=== PATIENT | female | born 1935 | race Caucasian/White ===

== ENCOUNTER → 2016-10-07 | Outpatient (CLI) | payer OTHER ==
[~2016-10-07] MED LIST: ADVAIR HFA115 MCG/21 INH; ALBUTEROL2.5 MG/0.5 INH; AMBEREN PO; AMOXICILLIN 50500 M1 PO; ASPIRIN EC81 M1 PO; ATORVASTATIN CA20 MG PO; BUTRANS1 EAC1 TD; CALCIUM 600 +1 EAC1 PO; CALCIUM 600 +1 EAC5 PO; CALCIUM OYSTER500 MG PO; CARVEDILOL3.125 MG PO; CEFTIN500 MG PO; CIPRODEX OTIC7.5 ML GTT; CO Q-10150 MG PO; CO Q-10200 MG PO; COREG PO; COREG3.125 MG PO; CVS FISH OIL 11 EAC3 PO; DEMADEX20 MG PO; DEXILANT60 MG PO; DILAUDID2 M1 PO; DOCUSATE SODIU100 MG PO; ESTER-C 500 MG1 EAC1 PO; EVENING PRIMRO500 MG PO; FERREX-150 PLU150 MG PO; FISH OIL 1,001000 M2 PO; FISHOIL PO; GALZIN25 MG PO; GARLIC OIL1 EAC1 PO; GINKGO BILOBA120 MG PO; GLUCOSAMINE &1 EACH PO; GLUCOSAMINE HC500 MG PO; HYDROCODON-ACE1 EAC8 OR; HYDROCODON-ACE1 EAC8 PO; K-DUR10 ME1 PO; KLOR-CON 1010 MEQ PO; LASIX 40 MG TAB40 M1 OR; LEVOXYL PO; LIPITOR80 MG PO; LISINOPRIL5 MG PO; MIRALAX17 GM PO; MOM PO; MUCINEX600 MG OR; MULTIVITAMINS PO; NYAMYC15 GM TOP; OMEGA-3100 MG PO; OMEGA-31000 M1 PO; OMEGA-31000 MG PO; OMEPRAZOLE20 MG PO; OXYCONTIN10 M1 PO; PANTOPRAZOLE SO40 M1 PO; PEPCID40 MG PO; PERCOCET 5-3251 EACH PO; PREDNISONE 20 M20 MG PO; PRILOSEC 20 MG20 MG OR; PRILOSEC 20 MG20 MG PO; QUINAPRIL 20 MG20 MG PO; QVAR HFA 440 MCG/UN1 IH; SENOKOT-S1 TA1 OR; SENOKOT-S1 TA1 PO; SYMBICORT160 MCG/4. INH; SYNTHROID100 MCG PO; SYNTHROID125 MCG PO; TYLENOL325 MG PO; VERAMYST10 GM NS; VITAMIN B-125000 MCG PO; VITAMIN B-125000 MCG SL; VITAMIN D 5050000 I1; VITAMIN D-32000 UNIT PO; VITAMIN D32000 UNI1 PO; VITAMINC500 PO; VITCB500GO PO; ZETIA10 MG PO; ZINC CHELATE100 MG PO; ZINC CHELATE50 MG PO; ZPAK PO
== END ==
LOC: RAD 16:24
DX: J90 Pleural effusion, not elsewhere classified (principal); J98.11 Atelectasis; M19.011 Primary osteoarthritis, right shoulder; M85.80 Other specified disorders of bone density and structure, unspecified site

== ENCOUNTER → 2016-10-30 | Outpatient (CLI) | payer OTHER | LOC: RAD 13:14 | DX: R91.8 Other nonspecific abnormal finding of lung field (principal); R06.02 Shortness of breath ==

== ENCOUNTER → 2017-06-23 | Outpatient (CLI) | payer OTHER | LOC: CAT 06-17 09:35 | DX: R91.1 Solitary pulmonary nodule (principal); J98.11 Atelectasis; R91.8 Other nonspecific abnormal finding of lung field; I51.7 Cardiomegaly; J44.9 Chronic obstructive pulmonary disease, unspecified; I49.5 Sick sinus syndrome; I50.23 Acute on chronic systolic (congestive) heart failure; I25.5 Ischemic cardiomyopathy; I25.10 Atherosclerotic heart disease of native coronary artery without angina pectoris; G47.33 Obstructive sleep apnea (adult) (pediatric); E66.01 Morbid (severe) obesity due to excess calories; I44.7 Left bundle-branch block, unspecified; N18.9 Chronic kidney disease, unspecified; E03.9 Hypothyroidism, unspecified; Z95.0 Presence of cardiac pacemaker ==

== ENCOUNTER → 2017-08-13 | Outpatient (CLI) | payer OTHER | LOC: RAD 15:28 | DX: J44.9 Chronic obstructive pulmonary disease, unspecified (principal); K21.9 Gastro-esophageal reflux disease without esophagitis; I50.9 Heart failure, unspecified; I25.5 Ischemic cardiomyopathy; I25.10 Atherosclerotic heart disease of native coronary artery without angina pectoris; G47.33 Obstructive sleep apnea (adult) (pediatric); E66.01 Morbid (severe) obesity due to excess calories; E03.9 Hypothyroidism, unspecified; N18.9 Chronic kidney disease, unspecified ==

== ENCOUNTER → 2017-11-26 | Outpatient (CLI) | payer OTHER | LOC: RAD 16:20 | DX: J90 Pleural effusion, not elsewhere classified (principal); J98.6 Disorders of diaphragm; Z95.0 Presence of cardiac pacemaker ==

== ENCOUNTER → 2017-11-27 | Outpatient (CLI) | payer OTHER | LOC: RAD 13:24 | DX: J90 Pleural effusion, not elsewhere classified (principal); J98.11 Atelectasis; J98.6 Disorders of diaphragm ==

== ENCOUNTER → 2017-12-01 | Outpatient (CLI) | payer OTHER ==
--- NOTE | ~2017-12-01 | PATH ---
[facility] [address] [address] PATHOLOGY RPT PROCEDURE Name: TRACEY HARO Room #: REG [facility].#: [id number] Admission: 12/01/17 Date of : 37 Discharge: Report #: [id number] Path Case #: [id number] Note [facility] Accession Number: [id number] TESTS RESULT FLAG UNITS REF RANGE LAB Clinician Provided Cytology Information No. of containers..01 Other (Miscellaneous) Source: RT PLEURAL FLUID DIAGNOSIS: RT PLEURAL FLUID NEGATIVE FOR MALIGNANT CELLS. SCANT CELLULARITY. MESOTHELIAL CELLS ARE PRESENT. Signed out by: Kerrie Callejas MD, Pathologist NPI- [id number] Performed by: Juanito Gotti, Manufactured Buildings Supervisor ([facility]) Gross description: 01 17ML, YELLOWISH RED, CLOUDY /LCS FLAG LEGEND: L-Low Normal,H-High Normal,LL-Alert Low,HH-Alert High <-Panic Low,>-Panic High,A-Abnormal,AA-Critical Abnormal Performed at: [address] [place] [address] Sina Michael MD, [address] [address] Kerrie Callejas MD, Performed at: [address], [place], [place] [address] MD Sina Michael MD Phone: [phone]
[2017-12-01 10:28] LABS: HEMATOCRIT 37.3 % (37.0-47.0); HEMOGLOBIN 12.2 gm/dL (12.0-15.0); MCH 29.9 pg (26.0-34.0); MCHC 32.7 g/dL (28.0-37.0); MCV 91.6 fL (80.0-100.0); RBC 4.08 mil/uL (4.20-5.00); RDW 14.7 % (10.5-14.5)
[2017-12-01 10:36] LABS: APTT 29.2 Seconds (24.5-32.8); CALCIUM 8.9 mg/dL (8.5-10.1); CREATININE 1.2 mg/dL (0.6-1.0); INR 1.2; POTASSIUM 3.3 mmol/L (3.5-5.1); PROTIME 11.9 Seconds (9.3-11.4)
[2017-12-01 12:12] LABS: CLARITY CLOUDY; COLOR DARK YELLOW; SOURCE RIGHT CHEST; TOTAL VOLUME 48 mL
[2017-12-01 12:17] LABS: SOURCE RIGHT CHEST
[2017-12-01 12:44] LABS: BF NUCLEATED CELLS 287; BF RBC 4926
[2017-12-01 14:05] LABS: BF MACROPHAGE 19; BF NEUTROPHILS 32
[2017-12-02 13:12] LABS: BODY FLUID ALBUMIN 2.4 g/dL (()); BODY FLUID AMYLASE 36 U/L (()); BODY FLUID GLUCOSE 102 mg/dL (()); BODY FLUID LDH 72 IU/L (())
== END | disposition home or self-care (01) ==
LOC: LAB 06:15
PROVIDERS: Internal Medicine Pulmonary Disease
DX: J90 Pleural effusion, not elsewhere classified (principal); J44.9 Chronic obstructive pulmonary disease, unspecified; I50.9 Heart failure, unspecified; Z88.8 Allergy status to other drugs, medicaments and biological substances; Z79.899 Other long term (current) drug therapy; Z98.890 Other specified postprocedural states

== ENCOUNTER → 2017-12-22 | Outpatient (CLI) | payer OTHER | LOC: RAD 13:37 | DX: J90 Pleural effusion, not elsewhere classified (principal) ==

== ENCOUNTER → 2018-01-05 | Outpatient (CLI) | payer OTHER | LOC: CAT 10:10 | DX: J90 Pleural effusion, not elsewhere classified (principal); J98.11 Atelectasis; I25.10 Atherosclerotic heart disease of native coronary artery without angina pectoris; N18.9 Chronic kidney disease, unspecified; E66.01 Morbid (severe) obesity due to excess calories; J44.9 Chronic obstructive pulmonary disease, unspecified; I50.9 Heart failure, unspecified; Z88.5 Allergy status to narcotic agent ==

== ENCOUNTER → 2018-04-07 | Outpatient (CLI) | payer OTHER | LOC: CAT 13:02 | DX: J90 Pleural effusion, not elsewhere classified (principal); J98.11 Atelectasis; J18.9 Pneumonia, unspecified organism; I51.7 Cardiomegaly; I25.10 Atherosclerotic heart disease of native coronary artery without angina pectoris; N20.0 Calculus of kidney; M47.814 Spondylosis without myelopathy or radiculopathy, thoracic region; R91.1 Solitary pulmonary nodule ==

== ENCOUNTER → 2018-08-19 | Outpatient (CLI) | payer OTHER | LOC: RAD 09:20 | DX: I51.7 Cardiomegaly (principal); J90 Pleural effusion, not elsewhere classified; J98.11 Atelectasis; J44.9 Chronic obstructive pulmonary disease, unspecified; I50.9 Heart failure, unspecified ==

== ENCOUNTER 2018-09-20 20:35 | Inpatient (IN) | payer OTHER ==
[~2018-09-20] VITALS: Ht 157.5 cm; Wt 96.5 kg
[2018-09-20 20:35] VITALS: BP 104/58
[~2018-09-20 20:35] MED LIST changes: +CO Q-10100 MG PO; -CO Q-10150 MG PO; -GALZIN25 MG PO; +OXYCODONE HCL10 MG PO; -OXYCONTIN10 M1 PO; -SENOKOT-S1 TA1 PO; +SENOKOT8.6 MG PO; -SYNTHROID125 MCG PO; +SYNTHROID200 MCG PO; +ZINC50 MG PO
[2018-09-20 21:14] LABS: ABSOLUTE NEUTROPHILS 6.4 thou/uL (1.4-8.2); BASOPHILS 0.3 % (0.0-2.0); EOSINOPHILS 0.4 % (0.0-3.0); HEMATOCRIT 35.1 % (37.0-47.0); HEMOGLOBIN 11.6 gm/dL (12.0-15.0); LYMPHOCYTES 9.3 % (24.0-44.0); MCH 30.7 pg (26.0-34.0); MCV 93.1 fL (80.0-100.0); MONOCYTES 8.1 % (1.0-8.0); PLATELET COUNT 207 thou/uL (150-400); POLYS 81.9 % (36.0-66.0); RBC 3.77 mil/uL (4.20-5.00); RDW 14.2 % (10.5-14.5); WBC 7.8 thou/uL (4.0-11.0)
--- NOTE | 2018-09-20 21:19 | EKG ---
[place] [address] [facility] [place] [address] ELECTROCARDIOGRAM REPORT Name: TRACEY SEGOVIA [id number] ������������������ Admission: 09/20/18 ������������������ Attend Phys: Discharge: ������������������ Date of : 37 Report #: [id number] ����������������������������������������������������������������� [id number] THIS REPORT FOR: //name// [facility] ED Test Date: 2018-09-20 Test Time: 21:07:21 Pat Name: TRACEY HARO Department: Room: Gender: F Elevator Conductor: MARICHUY : 1935 Requested By: Erica Giordano Order Number: [id number] MD: Homero Diego Measurements Intervals Beggs Rate: 83 P: OK: QRS: -50 QRSD: 179 T: 133 QT: 481 QTc: 566 Interpretive Statements Afib/flut and V-paced complexes No further rhythm analysis attempted due to paced rhythm Left bundle branch block Compared to ECG 10/13/2015 07:17:12 Left bundle-branch block now present AV dual-paced complex(es) or rhythm no longer present Electronically Signed On 09-20-2018 21:18:56 CDT by Homero Diego [email or web address] ��������������������������������������������� <ELECTRONICALLY SIGNED> ���������������������������������������� By: Homero Diego MD ��������������������������������������������� 09/20/182117 06 06 Homero Diego MD /EPI
[2018-09-20 21:23] LABS: CALCIUM 10.2 mg/dL (8.5-10.1); CREATININE 1.9 mg/dL (0.6-1.0); POTASSIUM 3.5 mmol/L (3.5-5.1)
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
[2018-09-20 21:32] LABS: ALBUMIN 3.9 g/dL (3.4-5.0); TOTAL BILIRUBIN 0.5 mg/dL (<0.1-1.0); TROPONIN-I 0.14 ng/mL (<0.06)
[2018-09-20 22:07] LABS: URINE BILIRUBIN NEGATIVE (Negative); URINE BLOOD TRACE (Negative); URINE CLARITY CLEAR; URINE COLOR YELLOW; URINE GLUCOSE-RANDOM* NEGATIVE (Negative); URINE KETONES NEGATIVE (Negative); URINE LEUKOCYTES-REFLEX NEGATIVE (Negative); URINE NITRITE-REFLEX NEGATIVE (Negative); URINE PROTEIN (DIPSTICK) NEGATIVE (Negative); URINE UROBILINOGEN 0.2 E.U./dl (0.2-1.0)
[2018-09-20 22:14] VITALS: BP 104/58
[2018-09-20 23:28] VITALS: BP 107/71
[2018-09-21 00:01] VITALS: BP 0/0
--- NOTE | 2018-09-21 00:01 | NUR ---
HAROLDO PUCKETT [facility] [phone]
--- NOTE | 2018-09-21 01:00 | NUR ---
SPOKE WITH VÍCTOR AND TRIED TO PULL UP VITALS BUT THE SYSTEM HAD CLEARED OUT THE HISTORY FOR THIS PATIENT. VITALS RELAYED TO DR GAONA THROUGH STAY BUT NOT INPUT AT THE TIME.
[2018-09-21] MEDS ORDERED: ULORIC40 MG PO (02:10)
[2018-09-21] MEDS ORDERED: PRADAXA150 MG PO (02:14)
--- NOTE | 2018-09-21 04:34 | NUR ---
PT ADMITTED FROM ER FOR SOA AND WEAKNESS AND ELEVATED TROPONIN. AO X4. IN COMPANY OF . VITAL SIGNS STABLE. HEPARIN DRIP STARTED PER DR. WILBURN ORDER THROUGH ER DOCTOR. HEPARIN PROTOCOL IMPLEMENTED. PT UNCOMFORTABLE ANSWERING SOME QUESTIONS IN PRESENCE OF . TO MAKE A FOLLOW UP AND INTERVIEW PATIENT WHEN KOBE. WILL CONTINUE TO FOLLOW POC.
[2018-09-21 05:47] LABS: CHOLESTEROL 75 mg/dL (<200); HDL CHOLESTEROL 32 mg/dL (>40); LDL CHOLESTEROL 35 mg/dL (<100); SERUM ASSESSMENT Clear; TC:HDL 2.3 Ratio (Not establshd); TRIGLYCERIDE 43 mg/dL (<150); VLDL 9 mg/dL (<40)
[2018-09-21 05:50] VITALS: BP 97/58
--- NOTE | 2018-09-21 07:39 | EKG ---
[address] [place] [address] ELECTROCARDIOGRAM REPORT Name: TRACEY HARO Room #: 215-P ADM IN M.R.#: [id number] ������������������ Admission: 09/20/18 ������������������ Attend Phys: Rehana Lazaro MD Discharge: ������������������ Date of : 36 Report #: [id number] ����������������������������������������������������������������� [id number] THIS REPORT FOR: //name// [facility] ED Test Date: 2018-09-20 Test Time: 22:22:52 Pat Name: TRACEY HARO Department: Room: 215 Gender: F Belt Splicer: ANTONIO : 1935 Requested By: Erica Giordano Order Number: [id number] MD: Jevon Lorenzo Measurements Intervals [place] Rate: 135 P: 189 IA: 108 QRS: 241 QRSD: 136 T: 227 QT: 354 QTc: 531 Interpretive Statements Ventricular-paced complexes No further analysis attempted due to paced rhythm Compared to ECG 09/20/2018 21:07:21 no significant change was found Electronically Signed On 09-21-2018 7:39:18 CDT by Jevon Lorenzo [email or web address] ��������������������������������������������� <ELECTRONICALLY SIGNED> ���������������������������������������� By: Jevon Lorenzo MD, [facility] ��������������������������������������������� [id number] 21 21 Jevon Lorenzo MD, [facility] /EPI
[2018-09-21 08:35] VITALS: BP 96/51
[2018-09-21 09:05] LABS: CALCIUM 9.5 mg/dL (8.5-10.1); CREATININE 1.8 mg/dL (0.6-1.0); POTASSIUM 3.2 mmol/L (3.5-5.1)
[2018-09-21 09:14] LABS: TROPONIN-I 0.13 ng/mL (<0.06)
[2018-09-21 10:51] LABS: PROT/CREAT RATIO 0.2; URINE CREATININE-RANDOM* 82.2 mg/dL; URINE PROTEIN-RANDOM* 13.1 mg/dL (<11.9)
[2018-09-21 12:43] VITALS: BP 103/63
[2018-09-21 16:00] VITALS: BP 96/61
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
--- NOTE | 2018-09-21 16:23 | NUR ---
PT C/O CHRONIC BACK PAIN, DENIES PAIN MEDS. PT WEARS BIPAP MOST OF THE DAY EVEN WHILE AWAKE, STATES SHE LIKES TO FEEL THE AIR FLOW. HEPARIN GTT TITRATED ACCORDING TO PROTOCOL. NO CATH TODAY D/T CREATNINE LEVELS, NEPHROLOGY CONSULTED.
[2018-09-21 19:35] VITALS: BP 90/51
--- NOTE | 2018-09-22 04:42 | NUR ---
ASSUMED CARE AT 1900. PT AO X4. C/O LEFT KNEE PAIN, AND BACK PAIN. ON BIPAP . PT ON HEPARIN . 2229 APTT 68.4, NO CHANGE TO DRIP INDICATED. NOW ON DAILY APTT. HAD LARGE LOOSE BM YESTERDAY. EVENING BOWEL MEDS HELD. WILL CONTINUE TO FOLLOW POC.
[2018-09-22 05:00] VITALS: BP 100/69
[2018-09-22 07:04] LABS: ALBUMIN 3.5 g/dL (3.4-5.0); CALCIUM 10.2 mg/dL (8.5-10.1); CREATININE 1.8 mg/dL (0.6-1.0)
[2018-09-22 07:22] VITALS: BP 100/55
[2018-09-22 11:16] VITALS: BP 96/66
[2018-09-22 15:31] VITALS: BP 96/55
--- NOTE | 2018-09-22 19:34 | NUR ---
PATIENT HAS RESTED QUIETLY IN BED THIS AFTERNOON. NO COMPLAINTS. APTT 51.8 AT 1400. NO CHANGE IN HEPARIN RATE. DTR AT BEDSIDE. FALL PRECAUTIONS IN PLACE.
[2018-09-22 20:18] VITALS: BP 103/64
[2018-09-23] VITALS (14 sets, daily range): BP systolic 82–121; BP diastolic 48–67
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
[2018-09-23 05:03] LABS: ALBUMIN 3.2 g/dL (3.4-5.0); CALCIUM 9.6 mg/dL (8.5-10.1); CREATININE 1.8 mg/dL (0.6-1.0); PHOSPHORUS 4.1 mg/dL (2.5-4.9); POTASSIUM 4.5 mmol/L (3.5-5.1)
--- NOTE | 2018-09-23 13:44 | 2DMMODE ---
[facility] [address] [address] 2 D/M-MODE ECHOCARDIOGRAM Name: TRACEY HARO Room #: 215-P ADM IN M.R.#: [id number] ������������� Admission: 09/20/18 ������������� Attend Phys: Rehana Lazaro MD Discharge: ��� ������������� ��� Date of : 37 Date of Service: 09/23/18 1344 �� Report #: [id number] �������� ��������������������������������������������[id number] THIS REPORT FOR: //name// APPROVED REPORT Study performed: 09/23/2018 12:27:25 EXAM: Comprehensive 2D, Doppler, and color-flow Echocardiogram Patient Location: Bedside Room #: 215 Status: routine BSA: 1.91 HR: 84 bpm BP: 99/54 mmHg Rhythm: Atrial Fibrillation Other Information Study Quality: Adequate Indications CAD Hx: CABG, HTN, HLP, COPD. 2D Dimensions RVDd: 40.81 mm IVSd: 15.46 (7-11mm) LVOT Diam: 19.67 (18-24mm) LVDd: 46.39 mm PWd: 15.73 (7-11mm) Ascending Ao: 35.65 (22-36mm) LVDs: 37.43 (25-40mm) Aortic Root: 33.69 mm Volumes Left Atrial Volume (Systole) Single Plane 4CH: 98.28 mL Single Plane 2CH: 78.92 mL LA ESV Index: 50.00 mL/m2 Aortic Valve AoV Peak Santosh.: 1.31 m/s AO Peak Gr.: 6.91 mmHg LVOT Max P.94 mmHg LVOT Max V: 1.11 m/s HARISH Vmax: 2.57 cm2 Mitral Valve MV Decel. Time: 217.69 ms MV E Max Santosh.: 0.75 m/s [facility] [address] [id number] 2 D/M-MODE ECHOCARDIOGRAM Name: TRACEY HARO Room #: 215- ADM IN .R.#: [id number] ������������� Admission: 09/20/18 ������������� Attend Phys: Rehana Lazaro MD Discharge: ��� ������������� ��� Date of : 37 Date of Service: 09/23/18 1344 �� Report #: [id number] �������� ��������������������������������������������[id number] Pulmonary Valve PV Peak Santosh.: 1.01 m/s PV Peak Gr.: 4.12 mmHg Tricuspid Valve TR Peak Santosh.: 2.49 m/s RAP Estimate: 10.00 mmHg TR Peak Gr.: 24.82 mmHg PA Pressure: 35.00 mmHg Left Ventricle The left ventricle is normal size. Moderate concentric left ventricular hypertrophy. Left ventricular systolic function is moderately decreased. LVEF is 40%. This study is not technically sufficient to allow evaluation of the LV diastolic function due to atrial fibrillation. Right Ventricle Right ventricle is at the upper limits of normal. Right ventricle is hypokinetic. Atria Left atrium is severely dilated. Right atrium is moderately dilated. Aortic Valve Aortic valve is trileaflet; mildly thickened and calcified. No aortic regurgitation is present. There is no aortic valvular stenosis. Mitral Valve The mitral valve is normal in structure. Mild to moderate mitral regurgitation. Tricuspid Valve The tricuspid valve is normal in structure. Moderate tricuspid regurgitation. Estimated PAP is 35mmHg. Pulmonic Valve The pulmonary valve is normal in structure. Moderate pulmonic regurgitation. Great Vessels The aortic root is normal in size. The ascending aorta is normal in size. IVC is normal in size and collapses <50% with inspiration. [facility] [address] [id number] 2 D/M-MODE ECHOCARDIOGRAM Name: TRACEY HARO Room #: 215-P [facility] IN M.R.#: [id number] ������������� Admission: 09/20/18 ������������� Attend Phys: Rehana Lazaro MD Discharge: ��� ������������� ��� Date of : 37 Date of Service: 09/23/18 1344 �� Report #: [id number] �������� ��������������������������������������������[id number] Pericardium There is no pericardial effusion. Left and right pleural effusions noted. <Conclusion> The left ventricle is normal size. Moderate concentric left ventricular hypertrophy. Left ventricular systolic function is moderately decreased. LVEF is 40%. Right ventricle is hypokinetic. Left atrium is severely dilated. Right atrium is moderately dilated. Aortic valve is trileaflet; mildly thickened and calcified. Mild to moderate mitral regurgitation. Moderate tricuspid regurgitation. Estimated PAP is 35mmHg. Moderate pulmonic regurgitation. ��������������������������������������������� <ELECTRONICALLY SIGNED> ���������������������������������������� By: Iraj Porras MD ��������������������������������������������� 09/23/18 1344 43 43 Iraj Porras MD /INF
--- NOTE | 2018-09-23 16:22 | NUR ---
ASSESSMENT DOCUMENTED. VSS. VPACED ON THE MONITOR. NO PAIN REPORTED. PT STATES SHE DOES NOT FEEL SAFE RETURNING HOME WITH SPOUSE. CASE MANAGEMENT FOLLOWING. PT OFF UNIT FOR CATH.
[2018-09-23 18:09] LABS: GLOBULIN TOTAL 3.8 g/dL (2.2-3.9); M-SPIKE 0.4 g/dL (Not Observed)
[2018-09-23 19:20] LABS: INR 1.4; PROTIME 14.8 Seconds (9.3-11.4)
[2018-09-24] VITALS: BP 93/48
--- NOTE | 2018-09-24 01:20 | NUR ---
pt off br at 2044, assisted up to bsc, pt only able to pass gas, iv fluids infusing, right groin dressing cdi, prn pain med given for c/o knee and back, repositioned as needed, cpap at [facility], up again to bsc with small bm, vss with hr vpaced, irregular, daughter at bedside offering support, will con't to monitor per ppoc.
[2018-09-24 03:54] VITALS: BP 116/56
[2018-09-24 05:03] LABS: ALBUMIN 3.1 g/dL (3.4-5.0); CALCIUM 9.3 mg/dL (8.5-10.1); CREATININE 1.7 mg/dL (0.6-1.0); PHOSPHORUS 4.3 mg/dL (2.5-4.9); POTASSIUM 4.5 mmol/L (3.5-5.1)
[2018-09-24 05:14] LABS: HEMATOCRIT 29.6 % (37.0-47.0); HEMOGLOBIN 9.8 gm/dL (12.0-15.0); MCH 31.4 pg (26.0-34.0); MCHC 33.2 g/dL (28.0-37.0); MCV 94.6 fL (80.0-100.0); RBC 3.13 mil/uL (4.20-5.00); RDW 14.6 % (10.5-14.5)
[2018-09-24 08:00] VITALS: BP 95/60
--- NOTE | 2018-09-24 08:21 | CATHLAB ---
[facility] [place] [address] INVASIVE PROCEDURE REPORT Name: TRACEY HARO Room #: 215-P ADM IN .R.#: [id number] ������������� Admission: 09/20/18 ������������� Attend Phys: Rehana Lazaro MD Discharge: ��� ������������� ��� Date of : 37 Date of Service: 09/24/18 0821 �� Report #: [id number] �������� ��������������������������������������������[id number] THIS REPORT FOR: //name// APPROVED REPORT Study performed: 09/23/2018 15:25:03 Patient Details Patient Status: In-Patient Room #: The patient is a 82 year-old female Event Personnel Iraj Porras Resource Conservation Manager, Graeme Barrera RN RN, Aubree Acevedo RTR, Arik Salcido Valisa Monitor Procedures Performed Art Access - R femoral artery* Left Heart Cath Coronaries, Bypass Grafts [id number] LHCCORCABG 13446 Initial Mod Sed Same Phys/QHP Gr5y 969317 06123 Mod Sed Same Phys/QHP Ea 320358 Indication Non-STEMI , Dyspnea, Positive stress test, Chest pain Risk Factors Peripheral Vascular Disease, Hypercholesterolemia, Coronary Artery DiseaseHypertensionRenal Failure Previous Procedures/Diagnoses Previous CABG Procedure Narrative The Right Groin^ was infiltrated with 1% Lidocaine subcutaneous anesthesia. A PINNACLE 5FR Sheath #[id number] sheath was inserted into the RFA^. Coronary angiography was performed using coronary diagnostic catheters. The right coronary system was accessed and visualized with a jr4 catheter. The left coronary system was accessed and visualized with a jl4 catheter. Closure device was deployed with a Fr MYNXGRIP 5F #[id number]. There was no hematoma. Intraoperative Conscious Sedation Sedation start time: 1613 Case end Time: 1645 Fluoro Time: 5.40 minutes Dose: DAP 6972.00 cGycm2 Contrast Type and Amount: Visipaque 30 ml [facility] [place] [address] INVASIVE PROCEDURE REPORT Name: HAROTRACEY Room #: 215-P [facility] IN .R.#: [id number] ������������� Admission: 09/20/18 ������������� Attend Phys: Rehana Lazaro MD Discharge: ��� ������������� ��� Date of : 37 Date of Service: 09/24/18 0821 �� Report #: [id number] �������� ��������������������������������������������[id number] Coronary Angiography The patient's coronary anatomy is right dominant. [place] Artery Percent Stenosis Left Main: 10 % Prox LAD: % Mid/Distal LAD: 100 % Circumflex: 100 % RCA: 100 % Ramus: % Diagnostic Cath LAD There is a patent DAVIES graft with an end-to-side anastomosis to the mid LAD. After the anastomosis, there is both retrograde and antegrade flow in the lumbee LAD. Diagonal 1 This is a small-caliber vessel, with mild disease. Circumflex There is a patent sequential SVG with a dyha-fj-xkuj anastomosis to OM1, nrvp-qk-fpkz anastomosis to OM 2 and an end-to-side anastomosis to OM 3. Right Coronary The SVG to the PDA is a small-caliber vessel with severe diffuse disease and a subtotal obstruction at the distal anastomosis. The PDA is filled via collateral circulation from the obtuse marginal arteries. Left Ventriculography Left Ventriculography was not performed. Ejection Fraction was 40% based off patient's Echocardiogram. An LVEDP was measured and there is no gradient across the outflow tract. Hemodynamics The aortic pressure is 125/69 mmHg with a mean of 92 mmHg. The left ventricular pressure is 121/24 mmHg with a mean of mmHg. The left ventricular end diastolic pressure is 32 mmHg. Conclusion 1. Patent DAVIES graft to the LAD. 2. Patent sequential SVG to OM1, OM 2 and OM 3. 3. Occluded SVG to PDA. The PDA is filled via collateral circulation from the obtuse marginal arteries. 4. Recommend medical therapy. ��������������������������������������������� <ELECTRONICALLY SIGNED> ���������������������������������������� By: Iraj Porras MD ��������������������������������������������� 09/24/18820 0 0 Iraj Porras MD /INF
[2018-09-24 12:24] VITALS: BP 106/63
--- NOTE | 2018-09-24 13:38 | NUR ---
met with patient, spouse at bedside. Gave patient advantra post acute care list as patient may need post acute care prior to home.
[2018-09-24 14:15] LABS: SOURCE THORACENTESIS; TOTAL VOLUME 55 mL
[2018-09-24 14:16] LABS: CLARITY CLEAR; COLOR YELLOW
[2018-09-24] MEDS ORDERED: PREDNISONE 5 MG5 M1 PO (14:24)
[2018-09-24] MEDS ORDERED: SPIRIVA INH (14:24)
[2018-09-24] MEDS ORDERED: FLONASE 0.05%50 MCG NASAL (14:25)
[2018-09-24] MEDS ORDERED: ALPRAZOLAM 0.50.5 MG PO (14:25)
[2018-09-24 14:26] LABS: BF NUCLEATED CELLS 121; BF RBC 702
[2018-09-24] MEDS ORDERED: ASPIRIN81 M2 PO (14:26)
[2018-09-24 15:34] LABS: BF MACROPHAGE 44; BF NEUTROPHILS 11
[2018-09-24 16:00] VITALS: BP 99/64
--- NOTE | 2018-09-24 16:22 | NUR ---
FAXED REFERRAL TO [facility]ILL[facility] OF [facility] WITH ADM. THAT PT. MIGHT DC FRI/SAT. DCP TO FOLLOW.
[2018-09-24 19:25] VITALS: BP 107/56
--- NOTE | 2018-09-25 04:36 | NUR ---
ASSESSMENTS CHARTED. PATIENT UP TO BSC WITH ASSIST OF ONE. DAUGHTER AT BEDSIDE AT START OF SHIFT, AT BEDSIDE DURING NIGHT. PATIENT BREATHING EASIER SINCE THORACENTESIS OF RIGHT SIDE. PLAN OF CARE TO INCLUDE THORACENTESIS OF LEFT SIDE. BRIEFED AT START OF SHIFT OF STRAINED FAMILY DYNAMICS BETWEEN AND . 'S ANXIETY INCREASES WHEN IS AROUND. CONCERN ABOUT 'S CARE GIVING ABILITIES AT HOME. MENTION OF MEDS NOT BEING GIVEN TO OR TAKEN BY CORRECT PERSON.
[2018-09-25 04:49] VITALS: BP 89/54
[2018-09-25 05:28] LABS: CALCIUM 9.2 mg/dL (8.5-10.1); CREATININE 1.6 mg/dL (0.6-1.0); POTASSIUM 4.4 mmol/L (3.5-5.1)
[2018-09-25 05:37] LABS: CALCIUM 9.3 mg/dL (8.5-10.1); CREATININE 1.6 mg/dL (0.6-1.0); PHOSPHORUS 4.4 mg/dL (2.5-4.9); POTASSIUM 4.4 mmol/L (3.5-5.1)
[2018-09-25 08:40] LABS: SOURCE THORACENTESIS
[2018-09-25 08:50] VITALS: BP 92/60
[2018-09-25 12:32] VITALS: BP 90/62
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
[2018-09-25 14:32] VITALS: BP 90/62
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
[2018-09-25 15:57] LABS: CLARITY SLIGHTLY CLOUDY; COLOR YELLOW; SOURCE LEFT CHEST; TOTAL VOLUME 60 mL
[2018-09-25 15:59] LABS: SOURCE LEFT CHEST
[2018-09-25 16:09] LABS: BODY FLUID AMYLASE 27 U/L (()); BODY FLUID GLUCOSE 97 mg/dL (()); BODY FLUID LDH 72 IU/L (()); BODY FLUID PROTEIN 3.7 g/dL (())
[2018-09-25 16:17] LABS: BF NUCLEATED CELLS 389; BF RBC 274
[2018-09-25 16:57] VITALS: BP 146/98
[2018-09-25 17:05] LABS: BF MACROPHAGE 8; BF NEUTROPHILS 0
[2018-09-25 20:05] VITALS: BP 93/52
--- NOTE | 2018-09-26 01:41 | NUR ---
ASSESSMENT CHARTED. PATIENT HAS HAS SEVERAL BOWEL MOVEMENTS TODAY. PATIENT HAD SECOND THORACENTESIS WITH 720 MLS REMOVED. C/O LOW BACK PAIN. MED GIVEN WHEN AVAILABLE. PLAN OF CARE IS TO RETURN HOME TODAY WITH HOME HEALTH CARE.
[2018-09-26 03:01] VITALS: BP 92/58
[2018-09-26 07:45] VITALS: BP 100/62
[2018-09-26 11:15] VITALS: BP 99/63
[2018-09-26 15:55] VITALS: BP 102/67
--- NOTE | 2018-09-26 18:22 | NUR ---
ASSESSMENTS CHARTED - MEDS PER OCTOBER PT WITH CO'S OF PAIN - GIVEN OXY WITH LITTLE RELIEF ON BACK PAIN PT STATED THE MEDICATION JUST HELPED HER TO RELAX. EMILY DIET AND FLUIDS. NO CO'S OF NAUSEA. UP TO THE BEDSIDE COMMODE -SITTING ON SIDE OF BED. PT WANTING CPAP BACK ON THIS AM AFTER BREAKFAST - INFORMED PATIENT THAT SHE SHOULD NOT WEAR DURING THE DAY IT SHOULD BE USED AT NIGHT AND THAT SHE SHOULD USE O2 DURRING THE DAY - PT PLACED ON O2 AT 4 L NC WITH SAT IF 100% - TITRATED DOWN TO 2 L WITH SAT IN THE MID TO UPPER 90'S - PT WITH CONT PULSE OX INSITU. NO CO'S AT THE PRESENT TIME. HAS BEEN TO VISIT A FEW TIMES THIS SHIFT.
[2018-09-26 20:07] VITALS: BP 92/56
[2018-09-27] VITALS (7 sets, daily range): BP systolic 80–104; BP diastolic 44–66
--- NOTE | 2018-09-27 05:38 | NUR ---
ASSESSMENTS CHARTED. VPACED ON TELEMETRY. LUNGS DIMINISHED ON 2 LITERS NC OR CPAP. C/O PAIN 8/10 DOSED CHARTED. PATIENT DID A NOCTURNAL DESAT STUDY. PLAN OF CARE TO CONTINUE CARES.
[2018-09-27 05:55] LABS: ALBUMIN 2.9 g/dL (3.4-5.0); CALCIUM 8.5 mg/dL (8.5-10.1); CREATININE 1.4 mg/dL (0.6-1.0); POTASSIUM 4.2 mmol/L (3.5-5.1)
[2018-09-27 12:09] LABS: IgA 238 mg/dL (64-422); IgG 1090 mg/dL (700-1600); IgM 107 mg/dL (26-217)
[2018-09-27 13:10] LABS: BODY FLUID ALBUMIN 1.8 g/dL (()); BODY FLUID AMYLASE 15 U/L (()); BODY FLUID GLUCOSE 106 mg/dL (()); BODY FLUID LDH 63 IU/L (()); BODY FLUID PROTEIN 3.1 g/dL (())
--- NOTE | 2018-09-27 18:08 | NUR ---
VSS REMAINS BIV PACED, BP LOW TODAY 80/44 TO 82/40, PT HAQD 2 EPISODES OF FEELING LIGHTHEADED AND DIZZY WITH ABOVE BP S. MD AWARE. COREG DECREASED, COREG HELD BOTH TIMES TODAY BECAUSE OG ABOVE BPS AND SYNTOMS. PT UP TO BSC WITH ASSIST AND STEADY WITH ASSIST. WILL CONTINUE TO MONITER AND CARE FOR PTPER PLAN OF CARE
[2018-09-28 05:05] VITALS: BP 100/63
--- NOTE | 2018-09-28 06:03 | NUR ---
PATIENT AO X4 WITH ASYMPTOMATIC SOFT BP. PATIENT REPORTS DIFFICULT BREATHING WHEN LAYING FLAT OR SITTING UPRIGHT IN BED. O2 STATS LOW 90S WITHOUT O2. PT ON BIPAP WITH O2 AT 2L AFTER C/O SOA. WAS AT BEDSIDE TILL ABOUT 0200. REPORTS BACK PAIN AND R. KNEE PAIN. PRN OXY GIVEN. DENIES NAUSEA, OR VOMITING. LOWER LOB LUNGS COURSE. RECEIVING NEB TREATMENTS . NO FURTHER C/O VOICED AT THIS TIME. WILL CONTINUE TO FOLLOW PLAN OF CARE.
[2018-09-28 08:10] VITALS: BP 98/69
[2018-09-28 12:10] VITALS: BP 97/48
[2018-09-28] MEDS ORDERED: DIGOXIN125 MCG PO (12:27)
[2018-09-28] MEDS ORDERED: CARVEDILOL3.125 MG PO (12:27)
[2018-09-28 14:55] VITALS: BP 90/62
--- NOTE | 2018-09-28 15:18 | NUR ---
PT. DISCHARGING TODAY TO HOME WITH [facility]. NOTIFIED HERNAN AT [facility] OF DISCHARGE AND SHE WILL NOTIFY PT. TIME OF VISITS.
--- NOTE | 2018-09-28 16:09 | NUR ---
ASSESSMENTS DOCUMENTED. PATIENT VPACED ON THE MONITOR. WORKED WITH PT/OT THIS MORNING. ON ROOM AIR - USES CPAP AT NIGHT AND WHILE RESTING. UP TO BEDSIDE COMMODE. VSS. ORDERS FOR DISHCARGE. DISCHARGE SUMMARY REVIEWED WITH PATIENT AND SPOUSE. SCRIPTS GIVEN. PT TO HAVE HOME HEALTH SERVICES. IV TAKEN OUT. TELE MONITOR OFF. BELONGING BEING PACKED UP BY . NO QUESTIONS OR CONCERNED AT THIS TIME.
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
--- NOTE | 2018-09-29 09:06 | PATH ---
[facility] [address] [place] [address] PATHOLOGY RPT PROCEDURE Name: TRACEY HARO Room #: 215-P DIS IN M.R.#: [id number] ������������������ Admission: 09/20/18 ������������������ Date of : 37 Discharge: 09/28/18 Report #: [id number] Path Case #: [id number] Note [facility] Accession Number: [id number] TESTS RESULT FLAG UNITS REF RANGE LAB Clinician Provided Cytology Information No. of containers..01 Other (Miscellaneous) Source: PLEURAL FLUID DIAGNOSIS: 02 PLEURAL FLUID NEGATIVE FOR MALIGNANT CELLS. SCANT CELLULARITY. MESOTHELIAL CELLS ARE PRESENT. THIS INTERPRETATION INCLUDES EVALUATION OF A CELL BLOCK. Pathologist ICD10: 02 R79.89 Signed out by: Kerrie Callejas MD, Pathologist NPI- [id number] Performed by: Juanito Gotti, Helix Coil Winder ([facility]) Gross description: 01 10ML, YELLOW, CLEAR /LCS FLAG LEGEND: L-Low Normal,H-High Normal,LL-Alert Low,HH-Alert High <-Panic Low,>-Panic High,A-Abnormal,AA-Critical Abnormal Performed at: [address] [place] [address] Sina Michael MD, [address] [address] Kerrie Callejas MD, Specimen Comment: A courtesy copy of this report has been sent to Specimen Comment: [phone], , . Specimen Comment: Report sent to DR ARELLANO,DR ROGERS / DR POSADA Specimen Comment: A duplicate report has been generated due to demographic updates. Performed at: [address], [place], [place] [id number] MD Sina Michael MD Phone: [phone]
[2018-09-29 15:05] LABS: KAPPA FREE LIGHT CHAINS 43.8 mg/L (3.3-19.4); KAPPA/LAMBDA RATIO 1.37 (0.26-1.65)
--- NOTE | 2018-09-30 10:06 | PATH ---
[facility] [address] [place] [address] PATHOLOGY RPT PROCEDURE Name: TRACEY HARO Room #: 215-P DIS IN M.R.#: [id number] ������������������ Admission: 09/20/18 ������������������ Date of : 37 Discharge: 09/28/18 Report #: [id number] Case #: [id number] Note [facility] Accession Number: [id number] TESTS RESULT FLAG UNITS REF RANGE LAB Clinician Provided Cytology Information No. of containers..01 Other (Miscellaneous) Source: PLEURAL FLUID DIAGNOSIS: 02 PLEURAL FLUID NEGATIVE FOR MALIGNANT CELLS. MESOTHELIAL CELLS ARE PRESENT. THIS INTERPRETATION INCLUDES EVALUATION OF A CELL BLOCK. Pathologist ICD10: 02 R79.89 Signed out by: Kerrie Callejas MD, Pathologist NPI- [id number] Performed by: Juanito Gotti, Senior Electronics Design Engineer ([facility]) Gross description: 01 20ML, YELLOW, CLOUDY /LCS FLAG LEGEND: L-Low Normal,H-High Normal,LL-Alert Low,HH-Alert High <-Panic Low,>-Panic High,A-Abnormal,AA-Critical Abnormal Performed at: [address] [place] [address] Sina Michael MD, [address] [address] Kerrie Callejas MD, Specimen Comment: A courtesy copy of this report has been sent to Specimen Comment: [phone], , . Specimen Comment: Report sent to Specimen Comment: Report sent to ,DR ROGERS / DR POSADA Specimen Comment: A duplicate report has been generated due to demographic updates. Performed at: [address], [place], [place] [id number] MD Sina Michael MD Phone: [phone]
--- NOTE | 2018-09-30 10:31 | HC ---
[facility] [place] [address] [place] [address] CONSULTATION Name: TRACEY HARO Room #: 215-P [facility] IN M.R.#: [id number] Admission: 09/20/18 ������������������ Attend Phys: Rehana Lazaro MD Discharge: 09/28/18 ������������������ Date of : 36 Report #: [id number] THIS REPORT FOR: //name// CC: Homero Lazaro Sven Arce DATE OF SERVICE: 09/21/2018 ATTENDING PHYSICIAN: Dr. Lazaro. REASON FOR CONSULTATION: Elevated creatinine. 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 Her current creatinine is 1.9. She presents after a positive stress test for heart catheterization, which is on hold at the current time due to the creatinine of 1.9. The patient has had several months of ongoing weakness, fatigue, very poor appetite and easily short winded. She has not really had any angina, does get occasional swelling in her lower extremities. She does have recurrent right pleural effusions and has had several right-sided thoracentesis procedures in the past for symptomatic relief. PAST MEDICAL HISTORY: She has obstructive sleep apnea, on BiPAP. She has had previous coronary bypass 8 years ago with 5-vessel bypass. She has had history of hypertension as well as COPD and was a former cigarette smoker. She has also had history of atrial fibrillation, has a pacemaker and is on Pradaxa. She also has a history of gout. She also has hypothyroidism. HOME MEDICATIONS: As listed include Synthroid 200 mcg daily, Uloric 40 mg daily, Pradaxa 150 mg b.i.d., atorvastatin 20 mg daily, vitamin D3 2000 units daily, glucosamine/chondroitin, torsemide 30 mg daily, potassium 10 mEq twice daily, Symbicort b.i.d. inhaled, vitamin C 1000 mg daily, Zetia 10 mg daily, Coenzyme Q 100 mg daily, zinc 1 capsule daily. She is also listed with Pepcid 40 mg daily, albuterol inhaler, fish oil 1000 mg daily, Advair inhaler, Protonix 40 mg daily, OxyContin 10 mg daily and apparently was on carvedilol, which was discontinued. ALLERGIES: REPORTEDLY TO VANCOMYCIN, CODEINE, AND MORPHINE. SOCIAL HISTORY: Former cigarette smoker, quit 3 years ago. No alcohol. FAMILY HISTORY: Strongly positive for coronary artery disease and coronary [facility] [address] [place] [address] CONSULTATION Name: TRACEY HARO Room #: 215-P [facility] IN ..#: [id number] Admission: 09/20/18 ������������������ Attend Phys: Rehana Lazaro MD Discharge: 09/28/18 ������������������ Date of : 36 Report #: [id number] bypass as well as positive for diabetes, but as far as we know not positive for kidney disease. REVIEW OF SYSTEMS: GENERAL: She is feeling poorly. She is weak. She is easily fatigued. She is easily short-winded. EYES: Vision reasonably good. ENT: Hearing okay, swallows okay, but has trouble with digestion. She has a history of achalasia. ENDOCRINE: Positive for borderline diabetes. RESPIRATORY: Easily short-winded. CARDIAC: No chest pain or palpitations currently. GASTROINTESTINAL: Poor appetite, difficulty swallowing. GENITOURINARY: Occasional discomfort with urination. MUSCULOSKELETAL: No arthritis. SKIN: No skin rashes or lesions. NEUROLOGIC: Generalized weakness and fatigue. PSYCHIATRIC: Positive for anxiety. PHYSICAL EXAMINATION: GENERAL: This is an elderly patient, not in acute distress. EYES: Vision reasonably good. Extraocular movements intact. No scleral icterus. ENT: Hearing okay. Mucous membranes moist. Tongue, buccal mucosa benign. NECK: Supple without carotid bruits, no thyromegaly. CHEST: Shows diminished breath sounds at the right base. HEART: Slightly irregular. ABDOMEN: Soft and nontender, without bruits, masses or organomegaly. EXTREMITIES: She has trace edema in her feet. Pulses are intact. NEUROLOGIC: Grossly intact. LABORATORY DATA: Urinalysis was benign. Creatinine was 1.9, potassium 3.2, BUN 34, albumin 3.9. Troponin I is elevated at 0.14. Hemoglobin 11.6. ASSESSMENT AND PLAN: 1. Chronic kidney disease. She appears to have chronic kidney disease. Her creatinine may be slightly higher than baseline. She certainly is at some risk with heart catheterization in terms of the x-ray. Certainly low osmolar nonionic dye would be preferable and limiting the amount. We will certainly hydrate her well IV before the procedure is performed. For completeness, paraprotein studies and urine protein studies will be assessed and renal sonography. We will certainly follow along. 2. Coronary artery disease. She had previous bypass ____. I agree with the need for the heart catheterization. 3. Achalasia with swallowing difficulty. She is on long-term Protonix. This could be contributing to her renal insufficiency. [facility] [address] [place] [address] CONSULTATION Name: TRACEY HARO Room #: 215-P DIS IN M.R.#: [id number] Admission: 09/20/18 ������������������ Attend Phys: Rehana Lazaro MD Discharge: 09/28/18 ������������������ Date of : 36 Report #: [id number] 4. History of hypertension. 5. Chronic obstructive pulmonary disease. 6. Obstructive sleep apnea, on BiPAP. ��������������������������������������������� <ELECTRONICALLY SIGNED> ���������������������������������������� By: Nicola Kim MD ��������������������������������������������� 09/30/18 1031 [id number] 2350 Nicola Kim MD /nt
--- NOTE | 2018-10-02 18:58 | HC ---
[facility] [place] [address] [place] [address] CONSULTATION Name: TRACEY HARO Room #: 215-P [facility] IN M.R.#: [id number] Admission: 09/20/18 ������������������ Attend Phys: Rehana Lazaro MD Discharge: 09/28/18 ������������������ Date of : 36 Report #: [id number] THIS REPORT FOR: //name// CC: Homero Arce REFERRAL PHYSICIAN: Dr. Birmingham. PRIMARY PHYSICIAN: Sven Arce DO. REASON FOR REFERRAL: Dyspnea and pleural effusion. HISTORY OF PRESENT ILLNESS: The patient is an 82-year-old white female who was admitted with lack of appetite, nausea, weakness. She was admitted on 09/20/2018. She is felt to have non-ST elevation myocardial infarction. She has been seen by Cardiology. Over the last day or so, she has noticed increasing dyspnea. The patient has had a history of recurrent pleural effusion due to ischemic cardiomyopathy. A pulmonary consultation was requested. Today's chest x-ray shows increase in bilateral [id number]-vu-[id number] pleural effusion. Otherwise, she denies any recent chest pain, productive cough or hemoptysis. The patient has been following in the pulmonary office for IVON. She is on BiPAP at 22/8 cm H2O. She is also followed for COPD. FEV1 measures 1.32 liters or 80% predicted. In the past, the patient has undergone thoracentesis for recurrent pleural effusion, which is felt to be related to acute on chronic heart failure. She has ischemic cardiomyopathy. Ejection fraction in the past has been 40%. PAST MEDICAL HISTORY: As mentioned above including history of COPD, IVON on BiPAP, achalasia, atrial fibrillation, ischemic cardiomyopathy with ejection fraction of 40%, chronic back pain due to spinal stenosis, she is wheelchair dependent, coronary artery disease as mentioned above, hypertension, hyperlipidemia, previous sleep study showed AHI around 28 events per hour, low saturation 56%. She also has a history of chronic kidney disease. PAST SURGICAL HISTORY: Status post permanent pacemaker placement, coronary artery bypass surgery, knee surgery, spinal fusion surgery. ALLERGIES: ADENOSINE, VANCOMYCIN, LEXISCAN, ESCITALOPRAM, REACTIONS UNSPECIFIED. HOME MEDICATIONS: List reviewed. This include Proventil, Xanax, Lipitor, [facility] [address] [place] [address] CONSULTATION Name: TRACEY HARO Room #: 215-P DIS IN M.R.#: [id number] Admission: 09/20/18 ������������������ Attend Phys: Rehana Lazaro MD Discharge: 09/28/18 ������������������ Date of : 36 Report #: [id number] aspirin, Symbicort 160 mcg 2 puffs twice a day, calcium supplements, Coreg, colchicine, Pradaxa, Zetia, Uloric, Flonase nasal spray, Synthroid, Prinivil, Roxicodone, Protonix, GlycoLax, K-Dur, Deltasone 5 mg once a day, Senokot, Spiriva once a day, Demadex and zinc. FAMILY HISTORY: Notable for both parents . Medical history not stated. SOCIAL HISTORY: The patient has smoked most of her life, quitting in 2013. The patient denies any alcohol use. REVIEW OF SYSTEMS: As mentioned above, otherwise 10-point system review negative. PHYSICAL EXAMINATION: GENERAL: She is awake, alert, appears to be in mild distress. VITAL SIGNS: Temperature is 98 degrees Fahrenheit, pulse is 92, respiratory rate is 18, blood pressure 100/60 mmHg, saturation 91%. HEENT: Normocephalic, atraumatic. NECK: Supple, without any lymphadenopathy or thyromegaly. CHEST: Breath sounds are decreased in the bases. Few crackles. No wheezes. CARDIOVASCULAR: Irregularly irregular. Pulses are 2+/4+ bilaterally. No obvious murmurs. BREASTS: Exam deferred. ABDOMEN: Soft, nontender, no organomegaly or masses felt. GENITOURINARY: Deferred. RECTAL: Deferred. EXTREMITIES: No edema, cyanosis or clubbing. LABORATORY DATA: Chest x-ray as mentioned above showing mild to moderate bilateral pleural effusion, increased since the last chest x-ray. Current echocardiogram showed ejection fraction of 40%, pulmonary pressure measured 35, traz-ik-wqrdjvrv mitral regurgitation, right ventricle is hypokinetic, concentric left ventricular hypertrophy, moderately decreased left ventricular systolic function. TSH is elevated at 9.3. Sodium 138, potassium 4.5, chloride 101, CO2 of 33, BUN is 28, creatinine is 1.8. Liver enzymes are mildly abnormal. Troponin 0.15. WBC is 7800, hemoglobin 11.6, platelets normal. [id number]. IMPRESSION: 1. Progressive dyspnea in this 82-year-old white female. Chest x-ray now shows recurrent bilateral pleural effusion that is mild to moderate. 2. Non-ST elevation myocardial infarction, status post cardiac catheterization earlier today. 3. Acute kidney injury/chronic kidney disease. 4. Coronary artery disease, ischemic cardiomyopathy, ejection fraction 40%. [facility] [address] [place] [address] CONSULTATION Name: TRACEY HARO Room #: 215-P DIS IN M.R.#: [id number] Admission: 09/20/18 ������������������ Attend Phys: Rehana Lazaro MD Discharge: 09/28/18 ������������������ Date of : 36 Report #: [id number] 5. Obstructive sleep apnea on BiPAP. We will resume BiPAP. 6. Chronic obstructive pulmonary disease, mild impairment. 7. Atrial fibrillation, status post pacemaker placement. 8. Hypertension. 9. Hypothyroidism with TSH being at 9.3. RECOMMENDATIONS: Given symptoms, we will proceed with therapeutic thoracentesis in a.m. on the right side. I will reevaluate the left side. If remains enlarged despite diuretic therapy, thoracentesis on the left side may be helpful. DVT and GI prophylaxis recommended. Continue bronchodilator therapy. Continue BiPAP during sleep and p.r.n. Thank you for this consultation. ��������������������������������������������� <ELECTRONICALLY SIGNED> ���������������������������������������� By: Navi Mccarthy MD ��������������������������������������������� 10/02/18 [phone] Navi Mccarthy MD /nt
== END 2018-09-28 16:20 | disposition home health service (06) | DRG 280 ==
LOC: ER 20:35 → EROBS 22:02 → 2N 22:02
PROVIDERS: Hospitalist; Internal Medicine Cardiovascular Disease; Internal Medicine Nephrology; Internal Medicine Pulmonary Disease; Nurse Practitioner Acute Care; Pediatrics; Student in an Organized Health Care Education/Training Program; ADMIT Internal Medicine
PROC: 5A09357 Assistance with Respiratory Ventilation, Less than 24 Consecutive Hours, Continuous Positive Airway Pressure (ICD-10-PCS; principal; 2018-09-21)
PROC: 5A09357 Assistance with Respiratory Ventilation, Less than 24 Consecutive Hours, Continuous Positive Airway Pressure (ICD-10-PCS; 2018-09-22)
PROC: 0W993ZZ Drainage of Right Pleural Cavity, Percutaneous Approach (ICD-10-PCS; 2018-09-24)
PROC: B2111ZZ Fluoroscopy of Multiple Coronary Arteries using Low Osmolar Contrast (ICD-10-PCS; 2018-09-24)
PROC: 5A09357 Assistance with Respiratory Ventilation, Less than 24 Consecutive Hours, Continuous Positive Airway Pressure (ICD-10-PCS; 2018-09-24)
PROC: 4A023N7 Measurement of Cardiac Sampling and Pressure, Left Heart, Percutaneous Approach (ICD-10-PCS; 2018-09-24)
PROC: B2181ZZ Fluoroscopy of Left Internal Mammary Bypass Graft using Low Osmolar Contrast (ICD-10-PCS; 2018-09-24)
PROC: B2131ZZ Fluoroscopy of Multiple Coronary Artery Bypass Grafts using Low Osmolar Contrast (ICD-10-PCS; 2018-09-24)
PROC: 0W9B3ZZ Drainage of Left Pleural Cavity, Percutaneous Approach (ICD-10-PCS; 2018-09-25)
PROC: 5A09357 Assistance with Respiratory Ventilation, Less than 24 Consecutive Hours, Continuous Positive Airway Pressure (ICD-10-PCS; 2018-09-25)
PROC: 5A09357 Assistance with Respiratory Ventilation, Less than 24 Consecutive Hours, Continuous Positive Airway Pressure (ICD-10-PCS; 2018-09-28)
DX: I21.4 Non-ST elevation (NSTEMI) myocardial infarction (principal); I50.23 Acute on chronic systolic (congestive) heart failure; J96.20 Acute and chronic respiratory failure, unspecified whether with hypoxia or hypercapnia; N17.9 Acute kidney failure, unspecified; I13.0 Hypertensive heart and chronic kidney disease with heart failure and stage 1 through stage 4 chronic kidney disease, or unspecified chronic kidney disease; N18.4 Chronic kidney disease, stage 4 (severe); J91.8 Pleural effusion in other conditions classified elsewhere; E78.00 Pure hypercholesterolemia, unspecified; K21.9 Gastro-esophageal reflux disease without esophagitis; E03.9 Hypothyroidism, unspecified; J44.9 Chronic obstructive pulmonary disease, unspecified; M10.9 Gout, unspecified; I25.10 Atherosclerotic heart disease of native coronary artery without angina pectoris; I49.5 Sick sinus syndrome; N20.0 Calculus of kidney; I95.9 Hypotension, unspecified; M48.00 Spinal stenosis, site unspecified; M62.84 Sarcopenia; G47.33 Obstructive sleep apnea (adult) (pediatric); K22.0 Achalasia of cardia; I25.5 Ischemic cardiomyopathy; E87.6 Hypokalemia; I48.91 Unspecified atrial fibrillation; Z98.1 Arthrodesis status; Z87.891 Personal history of nicotine dependence; Z95.1 Presence of aortocoronary bypass graft; Z79.51 Long term (current) use of inhaled steroids; Z95.810 Presence of automatic (implantable) cardiac defibrillator; Z99.3 Dependence on wheelchair; Z79.899 Other long term (current) drug therapy; Z88.1 Allergy status to other antibiotic agents; Z88.5 Allergy status to narcotic agent; Z88.8 Allergy status to other drugs, medicaments and biological substances; Z82.49 Family history of ischemic heart disease and other diseases of the circulatory system; Z83.3 Family history of diabetes mellitus
CPT/HCPCS: 10081

== ENCOUNTER → 2018-10-21 | Outpatient (CLI) | payer OTHER ==
[~2018-10-21] MED LIST changes: +ALPRAZOLAM 0.50.5 MG PO; +ASPIRIN81 M2 PO; +DIGOXIN125 MCG PO; +FLONASE 0.05%50 MCG NASAL; +PRADAXA150 MG PO; +PREDNISONE 5 MG5 M1 PO; +SPIRIVA INH; +ULORIC40 MG PO
== END ==
LOC: RAD 15:58
DX: J90 Pleural effusion, not elsewhere classified (principal); I11.9 Hypertensive heart disease without heart failure; E03.9 Hypothyroidism, unspecified; E78.00 Pure hypercholesterolemia, unspecified; G47.30 Sleep apnea, unspecified; Z88.8 Allergy status to other drugs, medicaments and biological substances; Z88.1 Allergy status to other antibiotic agents

== ENCOUNTER → 2018-11-26 | Outpatient (CLI) | payer OTHER | LOC: RAD 11:35 | DX: I11.0 Hypertensive heart disease with heart failure (principal); I50.9 Heart failure, unspecified; J90 Pleural effusion, not elsewhere classified; E78.5 Hyperlipidemia, unspecified; J44.9 Chronic obstructive pulmonary disease, unspecified; E03.9 Hypothyroidism, unspecified; G47.30 Sleep apnea, unspecified ==

== ENCOUNTER → 2018-12-04 | Outpatient (CLI) | payer OTHER ==
[2018-12-04 13:33] LABS: ABSOLUTE NEUTROPHILS 7.6 thou/uL (1.4-8.2); BASOPHILS 0.3 % (0.0-2.0); EOSINOPHILS 0.6 % (0.0-3.0); HEMATOCRIT 34.3 % (37.0-47.0); HEMOGLOBIN 11.2 gm/dL (12.0-15.0); LYMPHOCYTES 11.4 % (24.0-44.0); MCH 29.5 pg (26.0-34.0); MCHC 32.5 g/dL (28.0-37.0); MCV 90.7 fL (80.0-100.0); MONOCYTES 7.4 % (1.0-8.0); PLATELET COUNT 271 thou/uL (150-400); POLYS 80.3 % (36.0-66.0); RBC 3.79 mil/uL (4.20-5.00); RDW 14.6 % (10.5-14.5); WBC 9.4 thou/uL (4.0-11.0)
[2018-12-04 13:46] LABS: INR 1.2; PROTIME 12.5 Seconds (9.3-11.4)
[2018-12-04 13:51] LABS: CALCIUM 9.3 mg/dL (8.5-10.1); CREATININE 1.4 mg/dL (0.6-1.0); POTASSIUM 3.3 mmol/L (3.5-5.1)
[2018-12-04 15:09] LABS: CLARITY SL CLOUDY; COLOR YELLOW; SOURCE RT CHEST; TOTAL VOLUME 60 mL
[2018-12-04 16:27] LABS: BF NEUTROPHILS 9; BF NUCLEATED CELLS 158; BF RBC 479
[2018-12-04 16:28] LABS: BF MACROPHAGE 59
[2018-12-05 08:31] LABS: SOURCE CHEST
[2018-12-06 11:08] LABS: BODY FLUID ALBUMIN 2.4 g/dL (()); BODY FLUID AMYLASE 25 U/L (()); BODY FLUID GLUCOSE 102 mg/dL (()); BODY FLUID LDH 75 IU/L (()); BODY FLUID PROTEIN 4.2 g/dL (())
== END | disposition home or self-care (01) ==
LOC: CAT 12:54
PROVIDERS: Internal Medicine Pulmonary Disease
DX: J90 Pleural effusion, not elsewhere classified (principal); R06.02 Shortness of breath; R06.00 Dyspnea, unspecified; J44.9 Chronic obstructive pulmonary disease, unspecified; I50.9 Heart failure, unspecified; Z88.6 Allergy status to analgesic agent; Z79.899 Other long term (current) drug therapy; Z79.82 Long term (current) use of aspirin; Z98.890 Other specified postprocedural states

== ENCOUNTER → 2018-12-31 | Outpatient (CLI) | payer OTHER | LOC: RAD 13:07 | DX: I11.9 Hypertensive heart disease without heart failure (principal); J90 Pleural effusion, not elsewhere classified; J98.11 Atelectasis; Z88.8 Allergy status to other drugs, medicaments and biological substances ==

== ENCOUNTER → 2019-02-10 | Outpatient (CLI) | payer OTHER | LOC: RAD 12:14 | DX: I11.9 Hypertensive heart disease without heart failure (principal); J98.11 Atelectasis ==

== ENCOUNTER 2019-03-29 00:39 | Inpatient (IN) | payer OTHER ==
[2019-03-29] VITALS (29 sets, daily range): BP systolic 56–152; BP diastolic 16–73
[~2019-03-29] VITALS: Ht 157.5 cm; Wt 76.7 kg
--- NOTE | 2019-03-29 00:42 | NUR ---
ON arrival , pulled patient from car and anxious and not following commands well. Finally got patient to wheelchair and back to room 6 for triage. stayed out with myself and kept going over her meds and how he has been taking care of her and states, he cannot handle her any more, she has been having loose stools. STates, she is mostly wheelchair bound and she fell out of her wheelchair foreward, but then describes how she mostly slid to floor and never hit her head. Patient has been up to triage desk numerous times and going over patients meds. Remains extremely anxious.
[2019-03-29] MEDS ORDERED: SPIRONOLACTONE50 MG PO (00:53)
[2019-03-29 01:25] LABS: HEMOGLOBIN 11.9 gm/dL (12.0-15.0)
[2019-03-29] MEDS ORDERED: TORSEMIDE20 MG PO (01:25)
[2019-03-29] MEDS ORDERED: KLOR-CON 1010 MEQ PO (01:26)
[2019-03-29 01:27] LABS: ABSOLUTE NEUTROPHILS 10.9 thou/uL (1.4-8.2); BASOPHILS 0.3 % (0.0-2.0); EOSINOPHILS 0.1 % (0.0-3.0); HEMATOCRIT 38.2 % (37.0-47.0); LYMPHOCYTES 1.7 % (24.0-44.0); MCH 26.5 pg (26.0-34.0); MCV 85.4 fL (80.0-100.0); PLATELET COUNT 259 thou/uL (150-400); POLYS 96.9 % (36.0-66.0); RBC 4.48 mil/uL (4.20-5.00); RDW 20.2 % (10.5-14.5); WBC 11.2 thou/uL (4.0-11.0)
[2019-03-29 01:39] LABS: CALCIUM 8.4 mg/dL (8.5-10.1); CREATININE 2.1 mg/dL (0.6-1.0); POTASSIUM 3.7 mmol/L (3.5-5.1)
[2019-03-29 01:40] LABS: APTT 72.5 Seconds (24.5-32.8); PROTIME 79.7 Seconds (9.3-11.4)
[2019-03-29 01:45] LABS: INR 7.8
[2019-03-29 01:49] LABS: TOTAL BILIRUBIN 2.4 mg/dL (<0.1-1.0); TOTAL PROTEIN 7.3 g/dL (6.4-8.2)
--- NOTE | 2019-03-29 01:53 | NUR ---
PT REQUESTS WE OBTAIN PURSE FROM SPOUSE. TO GET HER MONEY, SHE REPORTS HE WILL ANDERSON HER MONEY, SAYS SHE $800 IN PURSE. OBTAINED PURSE AND WALLET CHECKED BY MYSELF, NURSING [facility]HER BASHIR AND SECURITY.$4.00 IN WALLET, NO OTHER MONEY FOUND IN PURSE, WALLET.
[2019-03-29 01:55] LABS: TROPONIN-I 0.69 ng/mL (<0.06)
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
[2019-03-29 03:08] LABS: PROTIME 99.8 Seconds (9.3-11.4)
[2019-03-29 03:12] LABS: INR 9.7
--- NOTE | 2019-03-29 04:12 | NUR ---
CONTACTED DAUGHTER DANIELA AT [phone]. INFORMED OF PT TREATMENT HERE, SHE IS ON HER WAY IN
--- NOTE | 2019-03-29 04:45 | NUR ---
SPOKE WITH DAUGHTER LOGAN GRAMAJO VIA PHONE, SHE IS DPOA, WILL BE BRINGING PAPERWORK REGARDING THIS WITH HER.
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
--- NOTE | 2019-03-29 07:17 | NUR ---
REPORT MADE TO [place] [facility] [facility]- REPORT #[id number]
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
[2019-03-29 07:36] LABS: PROTIME 77.8 Seconds (9.3-11.4)
[2019-03-29 07:38] LABS: INR 7.6
--- NOTE | 2019-03-29 07:43 | NUR ---
MULTIPLE LITERS OF FLUID ADMINISTERED, REQUESTED ALBUMIN, ORDERS FOR LR NOTED INSTEAD. PATIENT BP FINALLY INCREASED AND ABLE TO TRASPORT TO CT, RN X2 ACCOMPANIED PATIENT THROUGH OUT, NO ACUTE DISTRESS DURING CT. LEVO TITRATED TO ATTEMPT AN SBP >90, PHYSICIAN APPROVED GOAL. VASO REQUESTED AND ADDED FOR BP. SEE CHARTING FOR DETAILS. POISON CONTROL CONTACTED BY CONSULTING TECHNICAL DIRECTOR. REPORT GIVEN TO INTERVENTIONAL NURSE TUCKER.
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
--- NOTE | 2019-03-29 08:10 | NUR ---
PT TAKEN TO ICU ON PRACTICE MANAGER. PATIENT AND PATIENT FAMILY AWARE THAT CANNOT VISIT PER DR. WENDY ROGERS.
--- NOTE | 2019-03-29 08:19 | EKG ---
[address] [place] [address] ELECTROCARDIOGRAM REPORT Name: TRACEY HARO Room #: 242-P ADM IN M.R.#: [id number] Admission: 03/29/19 Attend Phys: Baldo Hendrix Discharge: Date of : 37 Report #: [id number] THIS REPORT FOR: //name// [facility] ED Test Date: 2019-03-29 Test Time: 00:57:38 Pat Name: TRACEY HARO Department: Room: 242 Gender: F Film Producer: ANTONIO : 1935 Requested By: Wilfrido Arechiga Order Number: [id number] MD: Jevon Lorenzo Measurements Intervals [place] Rate: 80 P: 0 LA: 51 QRS: 193 QRSD: 195 T: 3 QT: 437 QTc: 505 Interpretive Statements Ventricular paced rhythm No further analysis attempted due to paced rhythm Compared to ECG 09/20/2018 22:22:52 No significant changes Electronically Signed On 03-29-2019 8:19:36 CDT by Jevon Lorenzo [email or web address] <ELECTRONICALLY SIGNED> By: Jevon Lorenzo MD, [facility] 03/29/19 0819 Jevon Lorenzo MD, FAC /EPI
[2019-03-29 08:35] LABS: BE(vivo) -8.4 mmol/L (-2 to +3); HCO3 17.6 mmol/L (22.0-26.0); PCO2 37.9 mmHg (35.0-45.0); PO2 146.7 mmHg (80.0-100.0); sO2 98.6 % (92.0-98.0)
[2019-03-29 08:37] LABS: pH 7.284 (7.360-7.450)
[2019-03-29 09:16] LABS: URINE BLOOD 3+ (Negative); URINE CLARITY CLOUDY; URINE COLOR YELLOW; URINE GLUCOSE-RANDOM* NEGATIVE (Negative); URINE KETONES TRACE (Negative); URINE LEUKOCYTES NEGATIVE (Negative); URINE NITRITE NEGATIVE (Negative); URINE PROTEIN (DIPSTICK) 2+ (Negative); URINE SPECIFIC GRAVITY 1.015 (1.005-1.035)
[2019-03-29 09:21] LABS: ICTOTEST (BILI CONFIRMATORY) Negative (Negative); URINE BILIRUBIN NEGATIVE (Negative)
[2019-03-29 09:41] LABS: SQUAMOUS 0-3 Few /LPF (0-3); URINE RBC >20 Many /HPF (0-2)
[2019-03-29 09:42] LABS: AMORPHOUS URATES Many /LPF (None Seen); CASTS None Seen /LPF (None Seen); URINE WBC 6-15 Few /HPF (0-5)
--- NOTE | 2019-03-29 10:08 | NUR ---
IS HERE PLACING CENTRAL LINE.
--- NOTE | 2019-03-29 12:13 | NUR ---
Pt is very anxious and c/o pain in ABD. Notified ; no new order.
[2019-03-29 12:21] LABS: CALCIUM 8.1 mg/dL (8.5-10.1); CREATININE 2.2 mg/dL (0.6-1.0); POTASSIUM 4.2 mmol/L (3.5-5.1)
[2019-03-29 12:39] LABS: FIBRINOGEN 405.2 mg/dL (210-360); PROTIME 14.2 Seconds (9.3-11.4)
[2019-03-29 12:46] LABS: APTT 32.7 Seconds (24.5-32.8); INR 1.4
--- NOTE | 2019-03-29 14:40 | NUR ---
POISON CONTROL CALLED FOR AN UPDATES OF PT'S CURRENT CONDITIONS.
--- NOTE | 2019-03-29 20:12 | NUR ---
Pt remains in critical conditions. Continue to be on high dose of Levophed and Vasopressin gtt to maintain MAP>65 mmHg. Her fingers,toes and bottom of her feet are mottling due to above. Unable to titrate pressor down. No changes of cardiac rhythms. Her edema seems gotten worse. Daughters visited,aware of treatment plans. Report hand off to SHANNAN RN.
[2019-03-30 05:54] LABS: HEMATOCRIT 36.2 % (37.0-47.0); HEMOGLOBIN 11.4 gm/dL (12.0-15.0); MCH 27.2 pg (26.0-34.0); MCHC 31.4 g/dL (28.0-37.0); MCV 86.5 fL (80.0-100.0); RBC 4.19 mil/uL (4.20-5.00); RDW 20.9 % (10.5-14.5); WBC 23.6 thou/uL (4.0-11.0)
[2019-03-30 06:09] LABS: CALCIUM 7.7 mg/dL (8.5-10.1); CREATININE 2.3 mg/dL (0.6-1.0); MAGNESIUM 1.8 mg/dL (1.8-2.4); POTASSIUM 4.3 mmol/L (3.5-5.1)
[2019-03-30 06:13] LABS: TROPONIN-I 4.21 ng/mL (<0.06)
[2019-03-30 07:28] LABS: INR 2.5
[2019-03-30 08:03] VITALS: BP 121/43
[2019-03-30 08:09] VITALS: BP 121/43
[2019-03-30 09:08] VITALS: BP 120/45
[2019-03-30 09:49] LABS: BE(vivo) -11.1 mmol/L (-2 to +3); HCO3 14.6 mmol/L (22.0-26.0); PCO2 32.4 mmHg (35.0-45.0); PO2 123.3 mmHg (80.0-100.0); sO2 98.1 % (92.0-98.0)
[2019-03-30 09:50] LABS: pH 7.273 (7.360-7.450)
[2019-03-30 10:27] VITALS: BP 149/48
[2019-03-30 10:34] LABS: CALCIUM 7.8 mg/dL (8.5-10.1); CREATININE 2.3 mg/dL (0.6-1.0); POTASSIUM 4.4 mmol/L (3.5-5.1)
[2019-03-30 10:41] LABS: ALBUMIN 2.1 g/dL (3.4-5.0); DIRECT BILIRUBIN 3.2 mg/dL (<0.1-0.3); TOTAL BILIRUBIN 3.6 mg/dL (<0.1-1.0); TOTAL PROTEIN 5.8 g/dL (6.4-8.2)
[2019-03-30 11:54] VITALS: BP 133/47; BP 153/62
[2019-03-30 12:15] VITALS: BP 149/48
[2019-03-30 14:04] LABS: BE(vivo) -13.2 mmol/L (-2 to +3); HCO3 14.3 mmol/L (22.0-26.0); PCO2 39.2 mmHg (35.0-45.0); PO2 106.2 mmHg (80.0-100.0); sO2 96.6 % (92.0-98.0)
[2019-03-30 14:05] LABS: pH 7.181 (7.360-7.450)
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
[2019-03-30 15:19] LABS: HCO3 14.7 mmol/L (22.0-26.0); PCO2 40.4 mmHg (35.0-45.0); PO2 278.9 mmHg (80.0-100.0); pH 7.179 (7.360-7.450); sO2 99.5 % (92.0-98.0)
--- NOTE | 2019-03-30 17:20 | NUR ---
PATIENT A&O X 4 WITH FORGETTFULNESS THIS MORNING. PLEASANT AND COOPERATIVE WITH CARES.COMPLAINS OF PAIN IN RIGT LUNG AND BACK. FENT GIVEN AND WAS EFFECTIVE. PATIENT WENT FOR ECRP THIS AFTERNOON AND CAME BACK INTBATED. PATIENT FAMILY AT BEDSIDE FOR MOST OF THE DAY. ASSESSMENT CHARTED, SEE [facility]. MEDS GIVEN PER ORDERS. NO FURTHER CONCERNS AT THIS TIME. WILL CONTINUE TO MONITOR AND CARE PER PLAN OF CARE.
--- NOTE | 2019-03-30 17:49 | NUR ---
VASCULAR ACCESS CONSULTED BY DR GRAF FOR PICC LINE TO REPLACE L FEMORAL LINE. PT'S LABS,MEDS,HISTORY, ORDER AND CONSENT VERIFIED.RAJENDRA BRACHIAL WAS WIDELY PATENT WITH USG. 5FR TL POWER PICC TRIMMED TO 36CM INSERTED TO 2CM EXTERNAL PER HOSPITAL P&P. STAT CXR ORDERED. PT TOLERATED WELL.
--- NOTE | 2019-03-30 18:05 | NUR ---
CXR CONFIRMED PLACEMENT, PICC RELEASED FOR IMMEDIATE USE PER PROTOCOL TO RICH NICKERSON
[2019-03-30 20:19] LABS: BE(vivo) -7.1 mmol/L (-2 to +3); HCO3 18.9 mmol/L (22.0-26.0); PCO2 39.9 mmHg (35.0-45.0); PO2 221.8 mmHg (80.0-100.0); sO2 99.4 % (92.0-98.0)
[2019-03-30 20:21] LABS: pH 7.293 (7.360-7.450)
[2019-03-31 06:09] LABS: HEMATOCRIT 32.4 % (37.0-47.0); HEMOGLOBIN 10.1 gm/dL (12.0-15.0); MCH 26.8 pg (26.0-34.0); MCHC 31.3 g/dL (28.0-37.0); MCV 85.5 fL (80.0-100.0); RBC 3.79 mil/uL (4.20-5.00); RDW 20.5 % (10.5-14.5); WBC 16.3 thou/uL (4.0-11.0)
[2019-03-31 06:22] LABS: ALBUMIN 1.8 g/dL (3.4-5.0); DIRECT BILIRUBIN 1.9 mg/dL (<0.1-0.3); TOTAL BILIRUBIN 2.2 mg/dL (<0.1-1.0); TOTAL PROTEIN 5.4 g/dL (6.4-8.2)
[2019-03-31 06:24] LABS: INR 2.7; PROTIME 28.3 Seconds (9.3-11.4)
[2019-03-31 09:07] LABS: CALCIUM 7.4 mg/dL (8.5-10.1); CREATININE 2.6 mg/dL (0.6-1.0); MAGNESIUM 1.7 mg/dL (1.8-2.4); PHOSPHORUS 4.6 mg/dL (2.5-4.9); POTASSIUM 3.7 mmol/L (3.5-5.1)
[2019-03-31 10:46] LABS: BE(vivo) -3.5 mmol/L (-2 to +3); HCO3 22.3 mmol/L (22.0-26.0); PCO2 43.2 mmHg (35.0-45.0); PO2 156.4 mmHg (80.0-100.0); pH 7.331 (7.360-7.450); sO2 98.9 % (92.0-98.0)
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
[2019-03-31 16:59] VITALS: BP 68/39
[2019-03-31 17:02] VITALS: BP 87/47
--- NOTE | 2019-03-31 18:41 | NUR ---
PATIENT REMAINS INTUBATED AND SEDATED. BLOOD PRESSURE CONTINUES TO BE LOW, LEVOPHED STILL INFUSING. PATIENT ONLY HAD 30 CC URINE OUTPUT THIS SHIFT, DR KAUFFMAN CONSULTED AND IS AWARE OF LOW URINE OUTPUT. FAMILY AT BEDSIDE FOR MOST OF THE SHIFT. TURN Q2H FOR PRESSURE RELIEF AND COMFORT. NO FURTHER CONCERNS AT THIS TIME. WILL CONTINUE TO MONITOR AND CARE PER PLAN OF CARE.
[2019-04-01 03:55] LABS: BE(vivo) -2.3 mmol/L (-2 to +3); HCO3 24.5 mmol/L (22.0-26.0); sO2 98.6 % (92.0-98.0)
[2019-04-01 03:58] LABS: pH 7.299 (7.360-7.450)
--- NOTE | 2019-04-01 04:10 | NUR ---
PT PH LAB VALUE 7.[address] GRAF AT 0410. VENT SETTINGS ADJUSTED BY RT ORQUIDEA AT RATE 15.
[2019-04-01 04:44] LABS: ALBUMIN 1.6 g/dL (3.4-5.0); CALCIUM 6.8 mg/dL (8.5-10.1); CREATININE 2.8 mg/dL (0.6-1.0); POTASSIUM 3.4 mmol/L (3.5-5.1); TOTAL BILIRUBIN 1.5 mg/dL (<0.1-1.0); TOTAL PROTEIN 4.7 g/dL (6.4-8.2)
--- NOTE | 2019-04-01 05:15 | NUR ---
PT TUBE FEED RESIDUAL OF 100 CC WAS CHARCOAL IN COLOR. TUBE FEED HAS BEEN HOLD SINCE 2:00 AM. PT IN LOW INTERMITTENT SUCTION IN OG. PT MONITORED FOR DRAINAGE AMOUNT SINCE 2:00 AM. ZOYA ANDERSON CALLED AT 0510 AM. ZOYA ANDERSON ASKED TO CONTINUE TO MONITOR.
[2019-04-01 05:32] LABS: ABSOLUTE NEUTROPHILS 11.6 thou/uL (1.4-8.2); BASOPHILS 0.2 % (0.0-2.0); EOSINOPHILS 0.2 % (0.0-3.0); HEMATOCRIT 32.4 % (37.0-47.0); HEMOGLOBIN 10.2 gm/dL (12.0-15.0); LYMPHOCYTES 6.3 % (24.0-44.0); MCH 26.7 pg (26.0-34.0); MCHC 31.6 g/dL (28.0-37.0); MCV 84.7 fL (80.0-100.0); MONOCYTES 7.1 % (1.0-8.0); PLATELET COUNT 140 thou/uL (150-400); POLYS 86.2 % (36.0-66.0); RBC 3.82 mil/uL (4.20-5.00); WBC 13.4 thou/uL (4.0-11.0)
--- NOTE | 2019-04-01 08:14 | NUR ---
Pt REMAINS INTUBATED AND SEDATED TODAY. PT HAS CHECKED ON Pt FOR 4 CONSECUTIVE DAYS AND Pt STILL NOT APPROPRIATE FOR PT INTERVENTIONS. REQUEST NEW PT ORDERS WHEN Pt MEDICALLY STABLE AND APPROPRIATE TO PARTICIPATE IN PT.
--- NOTE | 2019-04-01 10:57 | NUR ---
Nutrition: When able to re try tube feeds, rec Jevity 1.5 at low rate 25 mL/hr, advance slowly to 45 mL/hr goal with present propofol. Defer fluid needs to physician
[2019-04-01 12:29] VITALS: BP 136/65
[2019-04-01 12:51] VITALS: BP 71/40
--- NOTE | 2019-04-01 15:53 | NUR ---
1550 PATIENT PLACED ON CPAP, PATIENT TACHYPNIC WITH RESPERATIONS AT 33. OTHER THAN THAT PATIENT IS TOLERATING WELL.
--- NOTE | 2019-04-01 17:06 | PATH ---
[facility] [address] [place] [address] PATHOLOGY RPT PROCEDURE Name: HESHAM JAMES Room #: 242-P ADM IN M.R.#: [id number] Admission: 03/29/19 Date of : 37 Discharge: Report #: [id number] Path Case #: [id number] [facility] Accession Number: [id number] . 01 Material submitted: . stomach - GASTRIC BX . 01 Clinical history: . Preop DX: sepsis, CBD stones Postop DX: gastritis, ulcer R/O ischemia . 01 Frozen section diagnosis: . . /QMS . 02 Diagnosis: Gastric mucosa, gastric rule out ischemia, endoscopic biopsy: - Extensive surface ulceration with fibrinoid degeneration and necrosis (please see comment). - Negative for intestinal metaplasia or atrophy. - Negative for dysplasia or malignancy. - Negative for Helicobacter pylori (properly controlled immunohistochemical stain performed). . (IUV:mml/neville; 04/01/2019) QLM 04/01/2019 1423 Local . 02 Comment: Examination shows extensive surface ulceration associated with fibrinoid degeneration and necrosis. Fibrin-filled vessels are not identified within the lamina propria. Essentially the entire surface epithelium is ulcerated. The findings may be suggestive of ischemic colitis; however, chemical gastritis, medication-induced gastritis amongst other local irritants cannot be excluded. Please correlate clinically. . (IUV:mml/neville; 04/01/2019) . 02 Electronically signed: . Kerrie Callejas MD, Pathologist NPI- [id number] . 01 Gross description: . Received in formalin labeled "Hesham James, gastric bx R/O ischemia," are two segments of canela-brown soft tissue measuring 0.3 x 0.3 x 0.2 cm and 0.6 x 0.2 x 0.2 cm in greatest dimensions. The specimen is submitted entirely in cassette [place]1. [place] [address] PATHOLOGY RPT PROCEDURE Name: HESHAM JAMES Room #: 242-P ADM IN M.R.#: [id number] Admission: 03/29/19 Date of : 37 Discharge: Report #: [id number] Path Case #: [id number] ([facility]; 03/31/2019) XDC/XDC 03/31/2019 0858 Local . 02 Pathologist provided ICD-10: K25.9 . 02 CPT . 631242, [id number] Specimen Comment: A courtesy copy of this report has been sent to Specimen Comment: [phone], , . Specimen Comment: Report sent to ,DR POSADA / DR ROBISON Performed at: [address], [place], [place] [id number] MD Sina Michael MD Phone: [phone] Performed at: [address] [id number] MD Kerrie Callejas MD Phone: [phone]
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
[2019-04-01 18:53] LABS: INR 3.1; PROTIME 31.8 Seconds (9.3-11.4)
--- NOTE | 2019-04-01 19:17 | NUR ---
Patient being followed by poison control for possible poisoning due to high INR on admission. Today I spoke with Erica from poison control that stated they recommend we send labs to [facility] labs to further investigate potential poisoning. Erica stated that the poison control did not know what specific labs [facility] lab would want and that our in house lab should get a hold of [facility] to find out what to send. I called down to in house lab and spoke with Kathleen who was supposed to be finding out what we need to do and where we need to send these labs. I never heard back from Kathleen today, I attempted to call her and was told she was out for the day and would look into this in the morning. I spoke with Dr Lin about these labs and he stated we could order the lab work that the poison control is requesting. no further concerns at this time. will continue to monitor and care per plan of care.
[2019-04-02 00:37] VITALS: BP 73/47
[2019-04-02 03:35] LABS: ALBUMIN 1.4 g/dL (3.4-5.0); CALCIUM 7.3 mg/dL (8.5-10.1); POTASSIUM 3.5 mmol/L (3.5-5.1); TOTAL BILIRUBIN 1.7 mg/dL (<0.1-1.0); TOTAL PROTEIN 5.2 g/dL (6.4-8.2)
[2019-04-02 08:09] LABS: PROTIME 30.2 Seconds (9.3-11.4)
--- NOTE | 2019-04-02 08:09 | NUR ---
PATIENT CONTINUES TO BE UNABLE TO PARTICIPATE IN OT EVALUATION. D/C OT AT THIS TIME AND IF STATUS CHANGES, OT EVAL CAN BE RE ORDERED.
[2019-04-02 08:13] LABS: INR 2.9
[2019-04-02 08:43] VITALS: BP 97/44
[2019-04-02 08:43] LABS: BE(vivo) 1.4 mmol/L (-2 to +3); HCO3 26.1 mmol/L (22.0-26.0); PCO2 41.2 mmHg (35.0-45.0); PO2 166.7 mmHg (80.0-100.0); pH 7.419 (7.360-7.450); sO2 99.1 % (92.0-98.0)
--- NOTE | 2019-04-02 09:50 | NUR ---
TIME OUT DONE AT BEDSIDE PRIOR TO PROCEDURE. DR GOLD, NIVIA, RN, ESHA, RN, KIRT, FUNCTIONAL SKILLS TUTOR AND ANGEL LYNN PRESENT. ALL IN AGREEMENT POST TIME OUT. DR GOLD TO PLACE TEMP DIALYSIS CATHETER.
--- NOTE | 2019-04-02 10:31 | P ---
[facility] [address] [place] [address] PROCEDURE REPORT Name: TRACEY HARO Room #: 242-P ADM IN M.R.#: [id number] Admission: 03/29/19 Attend Phys: Baldo Hendrix Discharge: Date of : 37 Report #: [id number] THIS REPORT FOR: //name// CC: Sanchez Arce DATE OF SERVICE: 03/30/2019 PROCEDURE PERFORMED: ERCP with sphincterotomy, stone removal and stent placement. HISTORY OF PRESENT ILLNESS: The patient is an 83-year-old female, who was admitted with abdominal pain. CT scan of the abdomen and pelvis yesterday showed extensive intrahepatic and extrahepatic bile duct dilation with apparent filling defect in the distal common bile duct near the pancreatic head suggesting choledocholithiasis. Mass was not excluded. The ascites was noted. The patient was started on IV antibiotics. She also had blood cultures that were positive for gram-negative rods. The patient has been hypotensive in the ICU and despite being on max dose of 2 pressors, is not improving. She also had an INR on admission of 9.7. This has been treated with vitamin K and FFP. INR yesterday was 1.4, today is 2.5. She was evaluated by myself yesterday and the thought was to proceed with an ERCP in the near future, hopefully when more stable; however, the patient is more unstable today. Her white count is increasing at 23.6 and her bilirubin today increased to 3.6. Therefore, we discussed proceeding more emergently with ERCP at this time. The patient was given 2 further units of FFP prior to the procedure. Again, she is on IV antibiotics at this time. I had a long discussion with the patient and her daughter regarding the procedures including risks and benefits. They understood and agreed. DESCRIPTION OF PROCEDURE: The risks and benefits of the procedure were explained to the patient's durable power of divorce attorney, her daughter. Those risks including but not limited to bleeding, perforation, the risk of sedation as well as potential risk for posterior superior pancreatitis. She understood these risks and gave informed consent. The procedure was performed in the operating room under general anesthesia. The patient is already on IV Zosyn at this time. She was also given 50 mg indomethacin suppository. Next, using a standard Olympus side-viewing ERCP scope, the scope was placed in the patient's mouth and advanced under direct vision through the esophagus, stomach and into the second portion of the duodenum. The major papilla was abnormal in that it was edematous and appeared to be erythematous. Also, there appears to be some purulent drainage from the opening. Next, using a Parmjit-Texert 0.025 dome tipped [facility] [address] [place] [address] PROCEDURE REPORT Name: TRACEY HARO Room #: 242-P ADM IN M.R.#: [id number] Admission: 03/29/19 Attend Phys: Baldo Hendrix Discharge: Date of : 37 Report #: [id number] sphincterotome, the common bile duct was cannulated without difficulty. Purulent material was immediately expressed when the catheter was inserted into the common bile duct. A guidewire was advanced into the intrahepatic ducts and a cholangiogram was obtained showing multiple stones and a significantly dilated common bile duct as well as debris. Next, I performed a large sphincterotomy. At this point, a large amount of purulent material debris and a mixture of multiple small stones were noted to be flowing out of the common bile duct. I then proceeded with multiple balloon sweeps, more stones and debris were removed. At this point, a wire basket was used and again was able to remove several stones; however, multiple stones remained despite attempting to clear the duct, both with the basket and balloon catheter. Therefore, at this point, I proceeded with placing a 7-Citizen Of [place] x 7 cm straight plastic biliary stent without difficulty. Good drainage was noted after stent placement was performed. At this point, the scope was then slowly withdrawn. In the gastric mucosa had areas of significant erythema as well as somewhat dusky appearance in areas and ulceration. I suspect this may be secondary to ischemia. Several biopsies were obtained. There was no active bleeding. Moderate amount of old food was also noted in the stomach. At this point, the scope was then withdrawn and the procedure terminated. The patient tolerated the procedure well. IMPRESSION: 1. Choledocholithiasis, large amount of purulent material, multiple stones and debris were removed as described above, all consistent with ascending cholangitis, status post sphincterotomy. 2. Biliary stent placement. 3. Significant gastritis with ulcerations, suspect secondary to ischemia. Biopsies pending. RECOMMENDATIONS: 1. Observe the patient post-procedure. 2. Continue to monitor liver function test. 3. Continue IV antibiotics and supportive care. 4. PPI therapy and await biopsy results. Thank you for allowing me to participate in her care. <ELECTRONICALLY SIGNED> By: Chau Stubbs MD 04/02/19 1031 1543 0240 Chau Stubbs MD /nt
--- NOTE | 2019-04-02 16:20 | NUR ---
REMAINS ON VENT. STARTING CRRT TODAY AFTER ACCESS PLACED. DTRS AT BEDSIDE.
--- NOTE | 2019-04-02 17:55 | NUR ---
CRRT STARTED PER MD ORDERS. PATIENT URINE OUTPUT MAINTAINED AT LEAST 30ML/HOUR IN THE LAST FEW HOURS. LEVOPHED TITRATIONS DOCUMENTED. WITH SEDATION VACATION SHE IS ABLE TO WEAKLY MOVE ALL EXTREMETIES AND FOLLOW COMMANDS. SHE NODS YES AND NO, SEEMINGLY APPROPRIATE. PATIENT HYPOTHERMIC AT THIS TIME. NURSE PAGED OUT PHYSICIAN FOR FURTHER ORDERS. PATIENT ON TONY HUGGER AT THIS TIME AND BLOOD WARMER ON WITH DIALYSIS. FAMILY UPDATED TOWARDS PLAN OF CARE. PATIENT SLOWLY PROGRESSING TOWARDS PLAN OF CARE FOR INCREASED URINE OUTPUT, TITRATING DOWN ON LEVOPHED. PATIENT NO PROGRESSING TOWARDS PLAN OF CARE FOR NORMOTHERMIC.
--- NOTE | 2019-04-02 19:46 | NUR ---
Care assumed at 1915. Pt tolerating CRRT well; urine output improving over last few hours per report. Pt remains moderately sedated on vent; soft wrist restraints maintained bilaterally. See [facility] for assessment.
[2019-04-03 06:02] LABS: ALBUMIN 1.5 g/dL (3.4-5.0); CALCIUM 7.6 mg/dL (8.5-10.1); POTASSIUM 3.7 mmol/L (3.5-5.1); TOTAL BILIRUBIN 1.7 mg/dL (<0.1-1.0); TOTAL PROTEIN 5.5 g/dL (6.4-8.2)
[2019-04-03 06:07] LABS: CREATININE 1.8 mg/dL (0.6-1.0)
--- NOTE | 2019-04-03 07:15 | NUR ---
Pt tolerated CRRT well overnight. Net fluid loss was 835 cc, 530 cc of that was urine. Lungs remain very coarse with crackles. Pt has slightly less edema and skin is not weeping as much. No changes in skin integrity.
--- NOTE | 2019-04-03 10:52 | NUR ---
Pt was sedated. No response to verbal commands. Edematous UEs, LEs. Weeping. V. Paced rhythm. Levo gtt started @16mcg. CRRT was done prior to shift change. clear yellow UO-175 within 4 hrs. Lasix gtt @10mg. Hypothermia-krzysztof hugger on
[2019-04-03 12:51] LABS: HEMOGLOBIN 11.3 gm/dL (12.0-15.0); MCH 27.3 pg (26.0-34.0); MCHC 32.3 g/dL (28.0-37.0); MCV 84.4 fL (80.0-100.0); RBC 4.14 mil/uL (4.20-5.00); RDW 19.8 % (10.5-14.5); WBC 8.9 thou/uL (4.0-11.0)
[2019-04-03 13:05] LABS: INR 1.7; PROTIME 17.4 Seconds (9.3-11.4)
[2019-04-04 02:05] LABS: HEPATITIS B SURFACE AG Negative (Negative)
[2019-04-04 04:32] LABS: MAGNESIUM 1.8 mg/dL (1.8-2.4)
[2019-04-04 04:34] LABS: ALBUMIN 1.4 g/dL (3.4-5.0); CALCIUM 7.9 mg/dL (8.5-10.1); CREATININE 2.3 mg/dL (0.6-1.0); POTASSIUM 3.8 mmol/L (3.5-5.1); TOTAL BILIRUBIN 1.4 mg/dL (<0.1-1.0); TOTAL PROTEIN 5.6 g/dL (6.4-8.2)
--- NOTE | 2019-04-04 07:23 | NUR ---
Pt sensitive to Levophed. Very little success tirating down levophed throughout the night. Pt nodding yes or no to questions appropriately. Pt's urine output more than 50cc/hr throughout the night. No success with CPAP trial this am by RT.
[2019-04-04 09:13] LABS: BE(vivo) 0.9 mmol/L (-2 to +3); PCO2 33.1 mmHg (35.0-45.0); PO2 86.1 mmHg (80.0-100.0); pH 7.478 (7.360-7.450); sO2 97.2 % (92.0-98.0)
--- NOTE | 2019-04-04 10:21 | NUR ---
0700-Propofol was turned off. 0800-Pt was awake. Followed commands appropriately. Levo gtt 16mcg. Lasix 10mg. Soft restraints on, trina. NPO. OG tube in place. TPN gtt @40nl/hr. 0920-Notified Dr. Lua re pt's sensitivity to Levophed. Dr. Lua wanted to titrate Levo to 2mcg to keep MAP>65. This nurse titrated Levo to 14 @0925 BP down to 90s w/ MAP 56. Increased Levo to 17 @1020. 1025-BP >140s. Titrate Levo to 16. BP is maintained to 120s w/ MAP 70s
--- NOTE | 2019-04-05 05:02 | NUR ---
DURING SEDATION VACATION @ 1999, PT OPENS EYES WITH VERBAL COMMANDS. UNABLE TO SQUEEZE HANDS. ON LEVOPHED FOR BP SUPPORT, TITRATED TO KEEP MAP >65. VPACED ON MONITOR. EDEMATOUS AND WEEPING. TOLERATING VENT SETTINGS. NO APPARENT PAIN. ON PROPOFOL GTT FOR SEDATION. LASIX GTT ONGOING. CLIMIX GTT ONGOING. WILL CONTINUE TO MONITOR PT
[2019-04-05 05:23] LABS: BE(vivo) 2.6 mmol/L (-2 to +3); HCO3 26.8 mmol/L (22.0-26.0); PCO2 39.7 mmHg (35.0-45.0); PO2 118.6 mmHg (80.0-100.0); pH 7.447 (7.360-7.450); sO2 98.5 % (92.0-98.0)
[2019-04-05 06:01] LABS: ABSOLUTE NEUTROPHILS 8.7 thou/uL (1.4-8.2); BASOPHILS 0.9 % (0.0-2.0); HEMATOCRIT 33.5 % (37.0-47.0); HEMOGLOBIN 10.9 gm/dL (12.0-15.0); LYMPHOCYTES 7.4 % (24.0-44.0); MCH 27.5 pg (26.0-34.0); MCHC 32.6 g/dL (28.0-37.0); MCV 84.4 fL (80.0-100.0); MONOCYTES 5.6 % (1.0-8.0); PLATELET COUNT 181 thou/uL (150-400); POLYS 86.1 % (36.0-66.0); RBC 3.97 mil/uL (4.20-5.00); RDW 19.2 % (10.5-14.5); WBC 10.1 thou/uL (4.0-11.0)
[2019-04-05 10:12] LABS: ALBUMIN 1.5 g/dL (3.4-5.0); CALCIUM 8.2 mg/dL (8.5-10.1); CREATININE 2.5 mg/dL (0.6-1.0); MAGNESIUM 1.7 mg/dL (1.8-2.4); POTASSIUM 3.6 mmol/L (3.5-5.1); TOTAL BILIRUBIN 1.1 mg/dL (<0.1-1.0); TOTAL PROTEIN 5.9 g/dL (6.4-8.2)
--- NOTE | 2019-04-05 11:04 | NUR ---
Nutrition: Agree with ordered rate of TPN. Recommend add vitamins/minerals to TPN.
[2019-04-05 13:40] VITALS: BP 142/68
[2019-04-05 14:18] VITALS: BP 143/57
--- NOTE | 2019-04-05 14:41 | NUR ---
FOLLOWING FOR DC PLANNING. CLINICAL INFO REVIEWED. PT REMAINS ON VENT. CRRT FRI/FRI AND NOW MAKING URINE AND CR 2.3-ON LASIX GTT AND LEVOPHED GTT. DTRS AT BEDSIDE DAILY.
[2019-04-05 16:00] VITALS: BP 107/51
--- NOTE | 2019-04-05 19:41 | NUR ---
assessments and interventions as doccumented. patient remains sedated and intubated. patient resting. vaso drip started. patient tolerating it well. daughter concerend about blood toxicology. dr. armendariz made aware and orders sent to lab to have labs sent. family educated about the plan of care. the plan of care is to conintue to monitor respiratory status, and infection, as well as labs. report given to security shift manager nurse.
[2019-04-06 01:07] VITALS: BP 124/52
--- NOTE | 2019-04-06 04:36 | NUR ---
No event tonight. Pt remains in critical conditions. Continue to be on levophed gtt and vasopressin gtt. This RN attempted to wean levophed off w/o any success. Her fingers are mildly cyanotic and no changes in this shift. IV Lines,ETT and OGT are inplaced. Several stools in this shift,obtain for c-diff, will place pt on Special contact for now.
[2019-04-06 05:53] LABS: ALBUMIN 1.5 g/dL (3.4-5.0); CREATININE 2.3 mg/dL (0.6-1.0); PHOSPHORUS 4.5 mg/dL (2.5-4.9); POTASSIUM 3.2 mmol/L (3.5-5.1)
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
[2019-04-06 13:40] LABS: BE(vivo) 1.7 mmol/L (-2 to +3); HCO3 26.2 mmol/L (22.0-26.0); PCO2 40.7 mmHg (35.0-45.0); PO2 117.9 mmHg (80.0-100.0); pH 7.427 (7.360-7.450); sO2 98.4 % (92.0-98.0)
[2019-04-06 21:04] VITALS: BP 129/56
--- NOTE | 2019-04-06 23:48 | NUR ---
PT HAD MULTIPLE LOOSE, WATERY YELLOW, FOUL-SMELLING STOOLS TODAY. NOTIFIED PLUMBING ASSEMBLER MOLD PULLER FOR HOSPITALIST. ORDERS RECEIVED. CDIFF SAMPLE SENT TO LAB. FECAL MGT SYSTEM PLACED. TUBE FEEDING STARTED PER ORDER. WILL CONTINUE TO MONITOR FURTHER.
[2019-04-07] VITALS (43 sets, daily range): BP systolic 52–146; BP diastolic 20–69
--- NOTE | 2019-04-07 03:42 | NUR ---
ASSUMED PT CARE AROUND 1900. PT SPONTANEOUSLY ARROUSES WITH SEDATION VACATION AND IS ABLE TO NOD HEAD AND FOLLOW SIMPLE COMMANDS. TOLERATING VENT WELL. REMAINS ON PROPOFOL GTT FOR SEDATION. VSS. REMAINS ON LEVO AND VASOPRESSIN GTTS. BP STABLE. Q2H TURN TO PREVENT SKIN BREAKDOWN. GOOD URINE OUTPUT VIA MCGRAW. COMLETE BED BATH GIVEN. SEMI-LIQUID STOOL NOTED IN FMS. TF VIA OG TUBE. TOLERATING WELL. NO RESIDUALS NOTED SO FAR. FALL PRECAUTIONS IN PLACE. PROGRESSING SLOWLY TOWARD POC GOALS. WILL CONTINUE TO MONITOR FURTHER.
[2019-04-07 04:47] LABS: ALBUMIN 1.8 g/dL (3.4-5.0); CALCIUM 7.9 mg/dL (8.5-10.1); CREATININE 2.2 mg/dL (0.6-1.0); MAGNESIUM 1.6 mg/dL (1.8-2.4); PHOSPHORUS 5.2 mg/dL (2.5-4.9)
[2019-04-07 04:49] LABS: POTASSIUM 2.5 mmol/L (3.5-5.1)
[2019-04-07 10:32] LABS: BE(vivo) 2.6 mmol/L (-2 to +3); PCO2 41.4 mmHg (35.0-45.0); PO2 106.4 mmHg (80.0-100.0); pH 7.433 (7.360-7.450)
--- NOTE | 2019-04-07 14:56 | NUR ---
WOUND CONSULT; A DTI WAS IDENTIFIED TO THE COCCYX/BUTTOCKS. THE PANNUS AREA HAD SKIN BREAKSOW RE; 3RD SPACING,FUNGAL ETIOLOGY OR BOTH. THE RIGHT ARM HAS A SKIN TEAR/UNSTABLE BLISTER. NO S/S OF AN ACUTE INFECTION. RECOMMEDNATIONS; ZGUARD TO COCCYX, MARATHON TO PANNOUS, COVER WITH A BOARDER FOAM, AND MARATHON TO THE PANNOS COVER WITH INTERDRY. RN PRESENT
[2019-04-08] VITALS (102 sets, daily range): BP systolic 70–128; BP diastolic 30–75
--- NOTE | 2019-04-08 04:57 | NUR ---
AOX3, FORGETFUL AND CONFUSED AT TIMES. DENIES PAIN. HYPOTHERMIC, BRAIR HUGGER ON PT. ON LEVOPHED AND VASOPRESSIN FOR BP SUPPORT. V-PACED ON MONITOR. ON BIPAP @ HS. FECAL MANAGEMENT SYSTEM IN PLACE, AND DRAINING. NPO UNTIL SPEECH THERAPY EVAL TODAY. URINE OUTPUT NOTED. NO COMPLAINS PRESENTLY, WILL CONTINUE TO MONITOR.
[2019-04-08 05:18] LABS: INR 1.3; PROTIME 13.1 Seconds (9.3-11.4)
[2019-04-08 05:30] LABS: CALCIUM 8.2 mg/dL (8.5-10.1); PHOSPHORUS 4.1 mg/dL (2.5-4.9)
[2019-04-08 05:33] LABS: POTASSIUM 2.9 mmol/L (3.5-5.1)
--- NOTE | 2019-04-08 16:25 | NUR ---
Patient trialed off bipap for a while. She was on nasal cannula for the majority of the morning. Then she took a nap this afternoon and was placed back on bipap. Patient expressed she wears bipap most of the time at home and she is comfortable with it. She is resting now with bipap on. Potassium is being replaced per renal physician. Nurse asked physician if he wanted a redraw after bags replaced and he expressed no redraw until the morning. Patients daughter updated throughout the day. Nurse attempted to wean her off levophed with out success, see gtt titrations.
--- NOTE | 2019-04-08 16:27 | NUR ---
Patient making slow progress towards plan of care of weaning fio2, increasing activity, and increasing strength/activity tolerance.
[2019-04-09] VITALS (94 sets, daily range): BP systolic 78–131; BP diastolic 42–69
[2019-04-09 05:33] LABS: ALBUMIN 2.1 g/dL (3.4-5.0); CALCIUM 8.3 mg/dL (8.5-10.1); CREATININE 1.9 mg/dL (0.6-1.0); PHOSPHORUS 4.4 mg/dL (2.5-4.9)
[2019-04-09 05:35] LABS: POTASSIUM 2.8 mmol/L (3.5-5.1)
--- NOTE | 2019-04-09 06:40 | NUR ---
PT ANXIOUS DURING THE NIGHT. NEEDED CONSTANT REASSURANCE WITH CARE. ON BIPAP DURING THE NIGHT. PLACED ON 3L NC THIS AM, PT STATED SHE WANTED TO BE ON BIPAP, ALTHOUGHT SATTING AT 97%. CONFUSED BUT COOPERATIVE. LEVOPHED AND VASOPRESSIN TITRATED FOR BP SUPPORT. FREQUENT TURNS AND WOUND CARE PERFORMED. SLOWLY PROGRESSING TOWARDS GOALS. WILL CONTINUE TO MONITOR
--- NOTE | 2019-04-09 16:07 | NUR ---
FOLLOWING FOR DC PLANNING. CLINIAL INFO REVIEWED. EXTUBATED 04/07/19 AND REQUIRED BIPAP LATER THAT DAY. HAS USED BIPAP AND NC SINCE AND HAS EPISODES OF DESATURATION. REMAINS ON VASO AND LEVO GTTS FOR BP SUPPORT. DOBBHOFF PLACED FOR NUTRITION. VERY DEBILITATED AND PT/OT/ST FOLLOWING NOW THAT EXTUBATED. WILL NEED REHAB, LIKELY SKILLED. NO W/E DC PLANNED.
--- NOTE | 2019-04-09 19:34 | NUR ---
PATIENT PROGRESSING TOWARDS PLAN OF CARE. DOBHOFF PLACED AND NUTRITION STARTED PER CRITICAL CARE PHYSICIAN ORDERS. POTASSIUM REPLACED. PER DR. KAUFFMAN, DO NOT CALL MORNING CRITICAL POTASSIUM HE WILL EVALUATE IT UPON HIS ROUNDING IN THE MORNING. FECAL MANAGEMENT SYSTEM IN PLACE AND WORKING. DAUGHTER UPDATED THROUGHOUT THE DAY. NURSE TALKED WITH BLADIMIR FROM THE LAB ABOUT SEND OUT LABS REQUESTED PER DR. BATEMAN. HE WILL COME BY NEXT FRIDAY TO TALK WITH PATIENTS DAUGHTER ABOUT NOT BEING ABLE TO SEND THEM[place] [id number]. NURSE TALKED WITH PATIENTS DAUGHTER IN REGARS TO THIS MATTER. PATIENT HIGHLY ANXIOUS AT TIMES. PLAN OF CARE IS TO CONTINUE TO ATTEMPT TO WEAN PRESSORS, WEAN OXYGEN ABLE, MONITOR INCREASE NUTRTION, AND INCREASE ACTIVITY LEVEL.
[2019-04-10] VITALS (41 sets, daily range): BP systolic 84–128; BP diastolic 38–80
--- NOTE | 2019-04-10 06:00 | NUR ---
PT RESTING QUIETLY AT PRESENT.1800 VCC UO THIS SHIFT. 100 % AV PACED RHYTHM FOLLOWS COMMANDS. ATIVAN 0.5 MG IV GIVEN EARLIER FOR RESTLESSNESS.DNBIES PAIN. BATHED. WIKLL CONT TO MONITOR,
[2019-04-10 06:37] LABS: ALBUMIN 2.3 g/dL (3.4-5.0); CALCIUM 8.5 mg/dL (8.5-10.1); CREATININE 1.8 mg/dL (0.6-1.0); PHOSPHORUS 4.5 mg/dL (2.5-4.9)
[2019-04-10 06:39] LABS: POTASSIUM 2.7 mmol/L (3.5-5.1)
[2019-04-10 07:49] LABS: ALBUMIN 2.3 g/dL (3.4-5.0); DIRECT BILIRUBIN 1.1 mg/dL (<0.1-0.3); TOTAL BILIRUBIN 1.8 mg/dL (<0.1-1.0); TOTAL PROTEIN 6.2 g/dL (6.4-8.2)
[2019-04-10 18:39] LABS: ALBUMIN 2.4 g/dL (3.4-5.0); DIRECT BILIRUBIN 1.2 mg/dL (<0.1-0.3); TOTAL BILIRUBIN 1.6 mg/dL (<0.1-1.0); TOTAL PROTEIN 6.4 g/dL (6.4-8.2)
[2019-04-11] VITALS (54 sets, daily range): BP systolic 71–117; BP diastolic 29–65
[2019-04-11 05:14] LABS: BE(vivo) 8.3 mmol/L (-2 to +3); HCO3 31.7 mmol/L (22.0-26.0); PCO2 39.3 mmHg (35.0-45.0); PO2 233.6 mmHg (80.0-100.0); pH 7.525 (7.360-7.450); sO2 99.6 % (92.0-98.0)
[2019-04-11 05:17] LABS: ABSOLUTE NEUTROPHILS 13.7 thou/uL (1.4-8.2); BASOPHILS 0.1 % (0.0-2.0); HEMATOCRIT 31.5 % (37.0-47.0); HEMOGLOBIN 9.9 gm/dL (12.0-15.0); MCH 27.4 pg (26.0-34.0); MCHC 31.4 g/dL (28.0-37.0); MCV 87.4 fL (80.0-100.0); PLATELET COUNT 333 thou/uL (150-400); POLYS 91.9 % (36.0-66.0); RDW 19.3 % (10.5-14.5); WBC 14.9 thou/uL (4.0-11.0)
[2019-04-11 05:33] LABS: ALBUMIN 2.2 g/dL (3.4-5.0); CREATININE 1.7 mg/dL (0.6-1.0); PHOSPHORUS 3.1 mg/dL (2.5-4.9); TOTAL BILIRUBIN 1.3 mg/dL (<0.1-1.0); TOTAL PROTEIN 6.2 g/dL (6.4-8.2)
--- NOTE | 2019-04-11 07:28 | NUR ---
Pt. able to state her name, date and she's at the hospital. She gets very anxious ,restless and has periods of confusion. Reoriented frequently and emotional support given. Lorazepam prn IV given x1. She slept intermittently but mostly awake during the night. She has been repositioned for comfort and complete bed bath given. Pt. has been on BIPAP ( 12/6 ,12 , 100% ) then she requested to have it off to give her a break. RT did ABG then put her on 60% face shield around 0530.Maintaining O2 sat in the mid to upper 90's.Levophed infusing to keep MAP>60.Titrated up this am due to MAP 57 this am.TF increased to 50 ml/hr at 2100 and tolerating well. Kept NPO per order.Pt. keeps requesting for water and ice cream. Explained to pt. why she can't have it yet. Oral care done frequently. Lab called for critical K of 2. Dr. June notified this am when he did rounds per his order. Fecal tube in place with liquid stool , leaking last night but has been fine since. Moisture barrier to coccyx. Bed alarm on for safety and SCD's on for DVT prophylaxis. Denies any pain. Slowly making progress towards care plan goals.
[2019-04-12] VITALS (92 sets, daily range): BP systolic 59–123; BP diastolic 33–65
--- NOTE | 2019-04-12 03:31 | NUR ---
NO EVENTS OVERNIGHT. PT HAS REMAINED ON BIPAP THE ENTIRE NIGHT SO FAR. PT HAS NOT SLEPT MUCH TONIGHT, AND IT WAS REPORTED THAT SHE HAS NOT SLEPT MUCH FOR DAYS. STOOL IS STARTING TO BULK, FECAL MANAGEMENT SYSTEM D/C'd AT 0300 THIS MORNING. PT HAS C/O SOME ABDOMINAL CRAMPING/NAUSEA AT TIMES. TUBE FEEDING HELD FOR AN HOUR AND PT REPORTED THE CRAMPING HAD IMPROVED. TUBE FEEDING STARTED BACK AT A SLOWER RATE AND RATE WILL BE INCREASED TOLERATED. WILL CONTINUE TO MONITOR.
[2019-04-12 05:37] LABS: HEMATOCRIT 32.7 % (37.0-47.0); HEMOGLOBIN 10.3 gm/dL (12.0-15.0); MCH 27.5 pg (26.0-34.0); MCHC 31.4 g/dL (28.0-37.0); MCV 87.4 fL (80.0-100.0); RBC 3.75 mil/uL (4.20-5.00); RDW 19.9 % (10.5-14.5); WBC 15.8 thou/uL (4.0-11.0)
[2019-04-12 05:45] LABS: CALCIUM 7.9 mg/dL (8.5-10.1); CREATININE 1.4 mg/dL (0.6-1.0); MAGNESIUM 1.8 mg/dL (1.8-2.4)
[2019-04-12 05:49] LABS: POTASSIUM 2.8 mmol/L (3.5-5.1)
--- NOTE | 2019-04-12 07:55 | HC ---
[facility] [place] [address] [place] [address] CONSULTATION Name: TRACEY HARO Room #: 242-P [facility] M.R.#: [id number] Admission: 03/29/19 Attend Phys: Baldo Hendrix Discharge: Date of : 36 Report #: [id number] THIS REPORT FOR: //name// CC: Baldo Hendrix Sven Arce DATE OF SERVICE: 04/07/2019 HISTORY OF PRESENT ILLNESS: This is an 83-year-old female patient who is admitted to the Intensive Care Unit with septic shock. She is noted to have a sacral ulceration as well as surgical wound to her inguinal region as well as a skin tear. I have been asked to see her with regard to wound care issues. The patient cannot provide much information about herself at this time. Family is at the bedside. PAST MEDICAL HISTORY: Significant for history of sleep apnea, hypertension, elevated cholesterol, previous spinal fusion, gastroesophageal reflux disease, bilateral carpal tunnel, hypothyroidism, coronary artery disease, status post coronary artery bypass graft x 5 in 2011, spinal stenosis, COPD, ischemic heart failure, achalasia, obstructive sleep apnea. SOCIAL HISTORY: She is a previous smoker. No alcohol use. FAMILY HISTORY: Positive for aortic aneurysm. ALLERGIES: ADENOSINE, CODEINE, VANCOMYCIN, MORPHINE. MEDICATIONS: Include Synthroid, Uloric, CoQ10, zinc, MiraLax, Senokot, OxyIR, Pradaxa, prednisone, Flonase, alprazolam, atorvastatin, multivitamin, Caltrate, Symbicort, Zetia, AccuNeb, pantoprazole, spironolactone, torsemide, potassium. REVIEW OF SYSTEMS: Not obtainable due to the patient's overall condition. She is not able to answer questions. PHYSICAL EXAMINATION: VITAL SIGNS: Include temperature 36.7, pulse 84, respiratory rate 18, blood pressure 105/53. GENERAL: This is a chronically ill-appearing female patient who appears to be in minimal distress. HEENT: Head normocephalic. Nose and throat are clear. NECK: Supple. LUNGS: Diminished. HEART: Regular rhythm. ABDOMEN: Soft, nontender. EXTREMITIES: Examination of the inguinal region demonstrates a surgical wound to the left inguinal region as well as some mild breakdown in the abdominal skin [address] [address] CONSULTATION Name: TRACEY HARO Room #: [facility] ADM IN M.R.#: [id number] Admission: 03/29/19 Attend Phys: Baldo Hendrix Discharge: Date of : 36 Report #: [id number] folds. She has a stage 3 sacral pressure ulceration that is relatively clean and extremity skin tear that appears to be clean and granulating. CLINICAL IMPRESSION: 1. Septic shock. 2. Stage 3 sacral pressure ulceration. 3. Peripheral skin tear. 4. Left inguinal surgical wound. RECOMMENDATIONS: We recommend barrier cream to the sacral region b.i.d. and p.r.n., air loss mattress, q.2 hour turning and repositioning, InterDry Ag to the inguinal skin folds, [place] has been applied to the skin tear. She will need aggressive nutritional support and PRAFO boots for pressure prophylaxis. I appreciate being asked to see her in consultation. <ELECTRONICALLY SIGNED> By: Beto Hill MD 04/12/19 0755 1210 [id number] Beto Hill MD /nt
--- NOTE | 2019-04-12 16:50 | NUR ---
SW reviewed chart and spoke with nursing and attending physician. Pt has dobhoff in place. SW met with pt's dtr, Candida, outside of pt's room to discuss discharge planning: post-acute placement. SW provided pt's dtr with list of in-network SNFs for review. Pt's dtrs to review list to find the best location to pt's dtr, [place]. SW explained need for insurance authorization once pt is medically stable for discharge. Pt's dtr verbalized understanding. Pt remains in ICU at this time. Therapy ordered to evaluate pt. SW is following to assist as needed with discharge planning.
--- NOTE | 2019-04-12 19:45 | NUR ---
PT ORIENTED X3 VERY FORGETFUL. ANXIOUS AND RESTLESS AT TIMES. HALDOL GIVEN X1 TODAY. PT'S DAUGHTERS AT BEDSIDE AND UDPATED TODAY. PT SLEPT ABOUT 3 HOURS THIS AFTENROON. TITRATING LEVOPHED TO KEEP MAP >60. PT WORKING WITH PHYSICAL THERAPY TODAY AND SAT AT EDGE OF BED. INCONTINENT OF LOOSE BRN STOOLS TODAY. TUBE FEEDING INFUSING AND GIVEN WATER FLUSHES ORDERED. RECIEVING CONTINOUS POTASSIUM REPLACMENT AT 5MEQ PER HOUR. REPORT GIVEN TO SALES INSPECTOR RN.
[2019-04-13] VITALS (54 sets, daily range): BP systolic 77–120; BP diastolic 37–79
[2019-04-13 05:41] LABS: HEMATOCRIT 33.1 % (37.0-47.0); HEMOGLOBIN 10.4 gm/dL (12.0-15.0); MCH 27.6 pg (26.0-34.0); MCHC 31.5 g/dL (28.0-37.0); MCV 87.8 fL (80.0-100.0); RBC 3.77 mil/uL (4.20-5.00); RDW 19.8 % (10.5-14.5); WBC 12.5 thou/uL (4.0-11.0)
[2019-04-13 05:54] LABS: ALBUMIN 1.9 g/dL (3.4-5.0); CALCIUM 7.4 mg/dL (8.5-10.1); CREATININE 1.2 mg/dL (0.6-1.0); PHOSPHORUS 2.2 mg/dL (2.5-4.9)
[2019-04-13 05:55] LABS: POTASSIUM 4.5 mmol/L (3.5-5.1)
[2019-04-13 14:57] LABS: MAGNESIUM 1.7 mg/dL (1.8-2.4)
[2019-04-13 15:02] LABS: POTASSIUM 6.8 mmol/L (3.5-5.1)
--- NOTE | 2019-04-13 18:00 | NUR ---
Noted improvement this afternoon per family on patient overall status. Patient remained alert and oriented with noted forgetfulness at times. Able to reorient easily. Conversed about situation openly. Levo remains infusing unable to titrate off (1mcg - 6mcg throughout the day). MAPs adequate. IVF patent and infusing. Noted increased heart rate during the evening; rates 110-140s, atrial fibrillation. Patient asymptomatic. Cardiology aware and following. Watchful of lytes, K+ stablized. Remains NPO. TF on hold overnight per GI due to intermittently high residuals. GI will reassess in a.m. 3 involuntary loose stools throughout the day. PT following. RAJENDRA PICC WNL. Wright catheter remains to dependent drainage. Urine output adequate. Continue frequent turning and repositioning. Family support throughout the day. Continued progression towards current plan of care goals. Acute change in uncontrolled heart rate.
--- NOTE | 2019-04-13 20:35 | NUR ---
Continued managment for
[2019-04-14] VITALS (67 sets, daily range): BP systolic 70–125; BP diastolic 37–75
[2019-04-14 05:46] LABS: HEMATOCRIT 33.8 % (37.0-47.0); HEMOGLOBIN 10.8 gm/dL (12.0-15.0); MCH 27.6 pg (26.0-34.0); MCHC 31.9 g/dL (28.0-37.0); MCV 86.5 fL (80.0-100.0); RBC 3.91 mil/uL (4.20-5.00); RDW 19.6 % (10.5-14.5); WBC 14.1 thou/uL (4.0-11.0)
[2019-04-14 05:57] LABS: ALBUMIN 2.1 g/dL (3.4-5.0); CALCIUM 7.8 mg/dL (8.5-10.1); CREATININE 1.2 mg/dL (0.6-1.0); PHOSPHORUS 2.4 mg/dL (2.5-4.9); POTASSIUM 4.7 mmol/L (3.5-5.1)
--- NOTE | 2019-04-14 16:03 | NUR ---
Patient slowly progressing towards plan of care of increasing indurance/strength, improving oxygenation and breathing, and wound care improvement.
[2019-04-15] VITALS (49 sets, daily range): BP systolic 74–137; BP diastolic 43–79
--- NOTE | 2019-04-15 02:13 | NUR ---
Despite having her HS meds, and prn meds for discomfort and "sour" stomach, pt has not rested any longer that 60-90 minutes through the night. Her meds are being carefully administered to prevent any further confusion, and are becoming less effective. She cries out frequently for help, for staff to place a pillow under her legs, (which is already there), and will seemingly forget that this was done less than 10 minutes previously. Her short term memory has been affected, and she will ask every person who enters her room, the same questions. Her heart rate/rhythm has not been consistent, pacemaker spikes are rarely seen, and rates are irregular and up to the 120's. Will continue to monitor.
[2019-04-15 05:53] LABS: HEMATOCRIT 32.9 % (37.0-47.0); HEMOGLOBIN 10.5 gm/dL (12.0-15.0); MCH 27.6 pg (26.0-34.0); MCV 86.4 fL (80.0-100.0); RBC 3.81 mil/uL (4.20-5.00); RDW 19.6 % (10.5-14.5); WBC 12.3 thou/uL (4.0-11.0)
[2019-04-15 06:15] LABS: CALCIUM 7.6 mg/dL (8.5-10.1); DIRECT BILIRUBIN 0.9 mg/dL (<0.1-0.3); MAGNESIUM 1.7 mg/dL (1.8-2.4); POTASSIUM 4.3 mmol/L (3.5-5.1); TOTAL BILIRUBIN 1.4 mg/dL (<0.1-1.0); TOTAL PROTEIN 5.8 g/dL (6.4-8.2)
--- NOTE | 2019-04-15 16:43 | NUR ---
FOLLOWING FOR DC PLANNING. CLINICAL INFO REVIEWED. PT ON 3 LITERS NC OR BIPAP TO SLEEP. REMAINS SEVERLY DEBILITATED AND WORKING WITH PT-TODAY DANGLED AND IS MAX ASSIST FOR BED MOBILITY. ATTEMPTING TO WEAN LEVO GTT TO KEEP SBP >100. DOBBHOFF IN BUT FEEDINGS ON HOLD FOR HIGH RESIDUALS AND NAUSEA. FAILED BEDSIDE SWALLOW RECENTLY. GI NOTE SAYS MAY NEED PEG. WILL NEED SKILLED REHAB WHEN MEDICALLY STABLE AND DTRS HAVE IN NETWORK SNF LIST AND REVIEWING.
[2019-04-16] VITALS (26 sets, daily range): BP systolic 67–110; BP diastolic 29–72
[2019-04-16 05:38] LABS: HEMATOCRIT 34.6 % (37.0-47.0); MCH 27.5 pg (26.0-34.0); MCHC 31.8 g/dL (28.0-37.0); MCV 86.7 fL (80.0-100.0); RBC 3.99 mil/uL (4.20-5.00); RDW 19.3 % (10.5-14.5)
[2019-04-16 05:59] LABS: CALCIUM 7.8 mg/dL (8.5-10.1); CREATININE 1.1 mg/dL (0.6-1.0); POTASSIUM 4.3 mmol/L (3.5-5.1)
--- NOTE | 2019-04-16 06:30 | NUR ---
NO OVERNIGHT EVENTS. TUBE FEEDINGS HAD BEEN ON HOLD SINCE AROUND 1600 YESTERDAY. PT CONTINUED TO HAVE HIGH RESIDUALS AT 2000 AND MN. ORDER FOR REGLAN OBTAINED TO HELP GASTROPARESIS. TUBE FEEDINGS RESUMED AT 0145 AT 15 ML/HR. AT 0400, NO RESIDUAL AND PT DENIED ANY NAUSEA, RATE INCREASED TO 30 ML/HR. PT ON BIPAP OVERNIGHT UNTIL 0400 THIS MORNING. WILL CONTINUE TO MONITOR.
--- NOTE | 2019-04-16 09:15 | NUR ---
Nutrition: When able to restart tube feeds, suggest change to elemental formula Vital 1.2 due to prior issues with high residuals. Agree with reglan scheduled doses also, discussed with nsg. goal suggested at 60 mL/hr
--- NOTE | 2019-04-16 14:05 | NUR ---
ORI reviewed chart and spoke with nursing and attending physician. Pt remains in ICU. Pt is on pressors and IV abx. Palliative care physician consulted to meet with pt and family to discuss goals of care and treatment plan. No weekend discharge planned. Pt will need insurance authorization for post-acute placement. ORI is following to assist as needed with discharge planning.
--- NOTE | 2019-04-16 15:00 | NUR ---
DR. ALVARADO HAD A LONG TALK WITH BOTH DAUGHTERS. EMOTIONAL SUPPORT GIVEN. SAME LEVEL OF SUPPORT CONTINUES. PT REMAINS ON LEVOPHED, UNABLE TO TITRATE DOWN LOWER THAN 3MCG/MIN.
[2019-04-17] VITALS (50 sets, daily range): BP systolic 82–138; BP diastolic 33–103
[2019-04-17 06:40] LABS: HEMATOCRIT 32.5 % (37.0-47.0); HEMOGLOBIN 10.3 gm/dL (12.0-15.0); MCH 27.6 pg (26.0-34.0); MCHC 31.7 g/dL (28.0-37.0); MCV 86.9 fL (80.0-100.0); RBC 3.74 mil/uL (4.20-5.00); RDW 19.9 % (10.5-14.5); WBC 13.3 thou/uL (4.0-11.0)
[2019-04-17 06:46] LABS: CALCIUM 7.6 mg/dL (8.5-10.1); CREATININE 1.1 mg/dL (0.6-1.0); POTASSIUM 3.7 mmol/L (3.5-5.1)
--- NOTE | 2019-04-17 19:44 | NUR ---
PATIENT REMAINS ON LEVOPHED DRIP TO KEEP MEAN ARTERIAL PRESSURE GREATER THAN 65MMHG, RESULTING IN URINE OUTPUT GREATER THAN 30 ML/HR. TOLERATING TUBE FEEDINGS WITHOUT C/O NAUSEA OR EMESIS AND RESIDUALS LESS THAN 50 ML. O2 SAT GREATER THAN 95% ON NC AT 4L. HEART RHYTHM STABLE IN THE 80'S TODAY. PATIENT AND FAMILY UPDATED TO POC AND REASSURANCE GIVEN.
[2019-04-18] VITALS (48 sets, daily range): BP systolic 76–142; BP diastolic 39–71
[2019-04-18 05:27] LABS: CALCIUM 7.5 mg/dL (8.5-10.1); CREATININE 1.1 mg/dL (0.6-1.0); POTASSIUM 3.7 mmol/L (3.5-5.1)
--- NOTE | 2019-04-18 07:40 | NUR ---
Pt on 4 L canula most of night and maintained O2 sat > 92%. Went on Bipap after having large liquied stool requiring bath and bed change per pt request as she felt very SOA. O2 sat dropped to 88% with activity and took several minutes for pt to recover (even with bipap) after bed change completed. Able to titrate levophed down from 4 mcg/min to 2 mcg/min over course of shift. Pt transferred to room 240 with belongings at 0600.
--- NOTE | 2019-04-18 18:33 | NUR ---
PATIENT'S RESP LESS LABORED THIS EVENING AFTER LASIX AND DAUGHTER IN TO VISIT. PATIENT IS CALM NOW AFTER VISITING WITH FAMILY. LEVOPHED TITRATED AND JOSUE TO KEEP MAP GREATER THAN 65MMHG. TUBE FEEDINGS AT 55 ML/HR WITH LESS THAN 50 ML OF RESIDUAL. DENIES NAUSEA AND ABDOMINAL PAIN. PATIENT AND DAUGHTER UPDATED TO POC AND REASSURANCE GIVEN.
[2019-04-19] VITALS (85 sets, daily range): BP systolic 68–124; BP diastolic 32–68
--- NOTE | 2019-04-19 06:00 | NUR ---
PT HAS RESTED QUIETLY TOMNIGHT. ON BIPAP. REMAINS ON LEVOPHED AT 5 MCG FOR BP SUPPORT. 600 CC UO THIS SHIFT. WILL CONT TO MONITOR
[2019-04-19 06:20] LABS: CREATININE 1.1 mg/dL (0.6-1.0); POTASSIUM 3.3 mmol/L (3.5-5.1)
[2019-04-19 14:12] LABS: MAGNESIUM 2.2 mg/dL (1.8-2.4); POTASSIUM 3.7 mmol/L (3.5-5.1)
[2019-04-19 14:16] LABS: APTT 40.8 Seconds (24.5-32.8); INR 1.2; PROTIME 12.4 Seconds (9.3-11.4)
--- NOTE | 2019-04-19 19:57 | NUR ---
ASSESSMENTS AND INTERVENTIONS DOCCUMENTED. PATIENT CONTINUES TO REST. PATIENT STILL ON LEVOPHED GTT. DAUGHTER AT BEDSIDE. EDUCATED ON PLAN OF CARE. NEW ORDERS RECIEVED FOR THROACENTSIS. CONSENTS SIGNED AND PLANS FOR PROCEDURE TOMORROW. PATIENT RESTING COMFORTABLY THROUGH OUT THE SHIFT. REPORT GIVEN TO PM RN
[2019-04-20] VITALS (64 sets, daily range): BP systolic 67–115; BP diastolic 34–64
--- NOTE | 2019-04-20 05:51 | NUR ---
PATIENT ALERT AND ORIENTED X4, NO COMPLAINTS OF PAIN. INTERMITTENTLY SWITCH BETWEEN NASAL CANNULA AND BIPAP. LEVOFED TO MAINTAIN BLOOD PRESSURE, FECAL MANAGEMENT DEVICE REMOVED. NO SIGNS OF ACUTE DISTRESS NOTED AT THIS TIME. WILL CONTINUE TO MONITOR.
[2019-04-20 06:01] LABS: CALCIUM 7.8 mg/dL (8.5-10.1); CREATININE 1.1 mg/dL (0.6-1.0); POTASSIUM 3.4 mmol/L (3.5-5.1)
[2019-04-20 12:36] LABS: CLARITY CLEAR; COLOR YELLOW; SOURCE LEFT CHEST; TOTAL VOLUME 35 mL
[2019-04-20 12:51] LABS: BF NUCLEATED CELLS 52; BF RBC 421
[2019-04-20 14:08] LABS: BF MACROPHAGE 23; BF NEUTROPHILS 11
[2019-04-20 15:33] LABS: SOURCE LEFT CHEST
--- NOTE | 2019-04-20 19:30 | NUR ---
in am tube feeding off for thoracentesis. from [id number] thoracentesis performed removing 1.45 liters. pt not verbalizing she is short of air or needs O2 increased. had 2 large loose stools today. passed swallow study with pureed diet ordered. for pm meal, she consumed about half of her pudding. dobhoff remains in place, tube feeding infusing currently. adequate urine output. daughter present, providing support to pt. progressing.
[2019-04-21] VITALS (46 sets, daily range): BP systolic 71–115; BP diastolic 43–71
[2019-04-21 05:26] LABS: ABSOLUTE NEUTROPHILS 8.7 thou/uL (1.4-8.2); BASOPHILS 0.2 % (0.0-2.0); EOSINOPHILS 0.8 % (0.0-3.0); HEMATOCRIT 28.6 % (37.0-47.0); HEMOGLOBIN 9.1 gm/dL (12.0-15.0); LYMPHOCYTES 7.1 % (24.0-44.0); MCH 28.6 pg (26.0-34.0); MCHC 31.9 g/dL (28.0-37.0); MCV 89.5 fL (80.0-100.0); MONOCYTES 7.1 % (1.0-8.0); PLATELET COUNT 221 thou/uL (150-400); POLYS 84.8 % (36.0-66.0); RBC 3.19 mil/uL (4.20-5.00); RDW 20.6 % (10.5-14.5); WBC 10.2 thou/uL (4.0-11.0)
[2019-04-21 05:41] LABS: ALBUMIN 1.7 g/dL (3.4-5.0); CALCIUM 7.6 mg/dL (8.5-10.1); CREATININE 1.1 mg/dL (0.6-1.0); DIRECT BILIRUBIN 0.4 mg/dL (<0.1-0.3); POTASSIUM 3.5 mmol/L (3.5-5.1); TOTAL BILIRUBIN 0.7 mg/dL (<0.1-1.0)
--- NOTE | 2019-04-21 08:03 | NUR ---
Dobhoff clotted off. PO KCL crushed and given down tube previously.
--- NOTE | 2019-04-21 09:30 | NUR ---
Lovenox dose held for scheduled right sided thoracentesis today. Will obtain consent. Dr. Howard on rounds, ok to leave dobhoff out for now.
--- NOTE | 2019-04-21 11:16 | NUR ---
Dr. Mccarthy on rounds, would like dobhoff replaced and tube feeding resumed as pt is proufoundly weak and unlikley to be able to maintain adequate caloric intake. Daughter would like us to wait on placing tube until adult protective services meets with patient and decision made on how to proceed with care. Discussion re: end of life care continues. Dr. Del Valle following patient and communicating with family members. Dr Dumont on rounds. APS in to see pt and daughter.
[2019-04-21 13:12] LABS: BODY FLUID ALBUMIN 1.1 g/dL (Not Estab.); BODY FLUID AMYLASE 29 U/L (()); BODY FLUID GLUCOSE 106 mg/dL (()); BODY FLUID LDH 123 IU/L (()); BODY FLUID PROTEIN 2.1 g/dL (())
--- NOTE | 2019-04-21 14:48 | NUR ---
Adult Protective Services worker here to interview the pt. Pt remains in ICU with poor prognosis. Dr. Del Valle is following and discussing options with the pt's dtrs. Pt continues to require levo for pressure support. Will follow.
--- NOTE | 2019-04-21 16:07 | NUR ---
Ultrasound unable to get to thoracentesis today. Instructed to give lovenox tonight and hold in the am for procedure. Pt does not have to be NPO for procedure. Dr. Del Valle in to see patient and family. Will hold off on replacing dobhoff until family in agreement. Pt eating 50-70% of pureed diet and nectar thick liquids. Family states patient has had a problem with dysphagia in the past and has had to had her esophagus stretched. Pt states she is used to eating pureed food and states she eats baby food at home. At present, family leaning toward taking patient to her own home on hospice and working with authorities to have her removed from the home.
--- NOTE | 2019-04-21 19:00 | NUR ---
Pt incontinent of huge liquid light brown stool. Cecilia care given and linens changed. Flexiseal replaced.
[2019-04-22] VITALS (43 sets, daily range): BP systolic 55–109; BP diastolic 30–65
[2019-04-22 05:27] LABS: CALCIUM 7.7 mg/dL (8.5-10.1)
--- NOTE | 2019-04-22 08:07 | PATH ---
[facility] [address] [place] [address] PATHOLOGY RPT PROCEDURE Name: TRACEY HARO Room #: 240-P ADM IN M.R.#: [id number] Admission: 03/29/19 Date of : 37 Discharge: Report #: [id number] Path Case #: [id number] Note [facility] Accession Number: [id number] TESTS RESULT FLAG UNITS REF RANGE LAB Clinician Provided Cytology Information No. of containers..01 Other (Miscellaneous) Source: 01 PLEURAL FLUID DIAGNOSIS: 02 PLEURAL FLUID NEGATIVE FOR MALIGNANT EPITHELIAL CELLS. SCANT CELLULARITY. REACTIVE MESOTHELIAL CELLS ARE PRESENT. RED BLOOD CELLS ARE PRESENT. THIS INTERPRETATION INCLUDES EVALUATION OF A CELL BLOCK. Pathologist ICD10: 02 A41.9 Signed out by: 02 Kerrie Callejas MD, Pathologist NPI- [id number] Performed by: 01 Rebecca Kamara, Design Lead ([facility]) Gross description: 01 6ML, YELLOW, CLEAR /LCS 06/15/1840 0000 Local FLAG LEGEND: L-Low Normal,H-High Normal,LL-Alert Low,HH-Alert High <-Panic Low,>-Panic High,A-Abnormal,AA-Critical Abnormal Performed at: 01 [facility] [address] [place] [address] Sina Michael MD, [address] [address] Kerrie Callejas MD, Specimen Comment: A courtesy copy of this report has been sent to [phone], [phone] Specimen Comment: [phone], Specimen Comment: Report sent to ,DR ROBISON / DR POSADA Specimen Comment: A duplicate report has been generated due to demographic updates. Performed at: 01 [facility] [address] [place] [address] PATHOLOGY RPT PROCEDURE Name: TRACEY HARO Room #: 240-P ADM IN M.R.#: [id number] Admission: 03/29/19 Date of : 37 Discharge: Report #: [id number] Path Case #: [id number] [address], [place], [place] [id number] MD Sina Michael MD Phone: [phone]
--- NOTE | 2019-04-22 09:22 | NUR ---
Followup: chart reviewed, Dr Del Valle documentation indicates family leading more towards home with hospice. Will continue to follow as needed
[2019-04-23] VITALS (50 sets, daily range): BP systolic 83–184; BP diastolic 34–164
--- NOTE | 2019-04-23 06:35 | NUR ---
PATIENT DROWSY THROUGHT THE NIGHT AND CONFUSION THE NIGHT PROGRESSED. PATIENT ASKED IF SHE WAS GIVEN A SHOT OF CBD OIL YESTERDAY MORNING, I ASSURED BOTH PATIENT AND DAUGHTER THAT THE MEDICATION IS NOT USED HERE. PATIENT WAS REFERRING TO THORACENTESIS. PATIENT WAS EDUCATED ON THE PROCESSES OF THORACENTESIS AND REASSURED THAT LOCAL ANESTHETIC IS NORMALLY USED FOR PROCESS. LEVOFED DRIP DECREASED TO 3 MCG FOR SEVERAL HOURS, MAP DROPPED BELOW 60 AND TITRATED BACK TO 4 MCG. PATIENT VERBALIZED INTREST IN STRAWBERRY BOOST FOR INCREASED PROTIEN INTAKE. WILL DISCUSS WITH ONCOMING NURSE. NO SIGNS OF ACUTE DISTRESS NOTED AT THIS TIME. WILL CONTINUE TO MONITOR.
--- NOTE | 2019-04-23 13:13 | NUR ---
FOLLOWING FOR DC PLANNNING. CLINICAL INFO REVIEWED. DISCUSSED CASE WITH DR. ALVARADO AFTER HE MET WITH PT AND SPOKE WITH BOTH DTRS, EMMANUEL AND BEV. PT NOT TALKING TO DR. ALVARADO EXCEPT TO SAY OK FOR DTRS TO MAKE MEDICAL DECISIONS FOR HER. DR. ALVARADO INDICATES HE EXPLAINED TO BOTH DTRS AGAIN NEED DECISION ON REMOVAL OF LEVOPHED GTT AND CODE STATUS. PT HAS NOT BEEN ABLE TO WEAN FROM LEVO GTT DESPITE MAX DOSE OF MIDODRINE. DR. ALVARADO INDICATES HE TOLD DTR EMMANUEL HE WOULD BE AVAILABLE THIS WEEKEND TO MEET WITH EMMANUEL AND PT IF EMMANUEL NEEDED SUPPORT. IF DTRS BEV AND EMMANUEL MAKE DECISION FOR DNR AND PALLIATIVE REMOVAL OF LEVOPHED GTT, WEEKEND GOLF RANGE ATTENDANT DIRECTOR OF ACCOUNTS RECEIVABLE CAN ASSIST WITH HOSPICE REFERRAL BY GOING THROUGH NURSING TERRITORY SALES REPRESENTATIVE. ICU RIPENING ROOM HAND UPDATED.
--- NOTE | 2019-04-23 19:25 | NUR ---
PATIENT MADE DECISION TODAY THAT SHE IS TIRED AND DOESN'T WANT TO DO THIS ANYMORE. DOESN'T WANT TO BE IN PAIN. REQUESTED TO SPEAK TO DR. ALVARADO. I CALLED DR. ALVARADO AND SHE CAME TO PATIENT'S BEDSIDE. AGAIN PATIENT STATED THAT SHE WAS READY TO GO TO SLEEP AND NOT WAKE UP. DOESN'T WANT HER DAUGHTER'S TO HAVE TO MAKE THIS DECISION SO SHE IS MAKING IT HERSELF. BOTH DAUGHTERS NOTIFIED. DPOA DAUGHTER LOGAN IS FLYING IN [facility] FROM [place]. AT THIS TIME PATIENT IS STILL A FULL CODE AND ON LEVAPHED UNTIL DAUGHTER GETS IN TOWN AND PATIENT IS MADE A DNR. DR. ALVARADO TO SEE PATIENT [facility] PER DR. WONG
[2019-04-24] VITALS (41 sets, daily range): BP systolic 82–146; BP diastolic 40–69
--- NOTE | 2019-04-24 18:00 | NUR ---
Dr. Del Valle on phone, spoke with daughter Sheeba. Pt currently DNR. Will not restart Levophed that was weaned off today if BP drops. Pt essentially palliative care except current medications, antibiotic, steroid, midodrine to continue. Tube feeding dc'd. Pt tolerating pureed diet but must be fed. Family all in agreement.
[2019-04-25] VITALS (21 sets, daily range): BP systolic 86–108; BP diastolic 39–50
--- NOTE | 2019-04-25 04:36 | NUR ---
SLEPT MOST OF SHIFT. DENIES NEED FOR PAIN MEDICATION. MONITOR BLOOD PRESSURE CLOSELY. FAMILY AT BEDSIDE. REFUSES TO TURN AT TIMES. WORKING ON GOALS AND PLAN OF CARE FOR NOC. PROGRESSING TOWARDS DISCHARGE GOALS FOR POSSIBLE HOSPICE. MAINTAIN SAFE ENVIRONMENT. REMAINS WITH FECAL TUBE AND SMALL AMOUNTS OF STOOL AROUND SITE WITH PERICARE COMPLETED. CONTINUE TO ASSES CLOSELY.
--- NOTE | 2019-04-25 19:00 | NUR ---
Shift summary: Slept most of shift. Pain now controlled. Oriented to self and situation. Forgetful. BP stable off levophed gtt x 24 hrs. Midodrine 10mg po TID. Afebrile. Room air. Lungs diminished. BS active. Small amt liquid stool via flexiseal. Wright with 250ml blood tinged urine x 12 hrs. Pt DNR. OK for transfer to CCU. Right nare dobhoff removed, tube feed dc'd. Plan for meeting with Dr. Del Valle with family in am at 0900 re: hospice/palliative care.
[2019-04-26] VITALS: BP 93/49
[2019-04-26 04:00] VITALS: BP 96/70
--- NOTE | 2019-04-26 04:18 | NUR ---
AOX42, FORGETFUL. MEDICATED FOR PAIN RELIEF DURING THE NIGHT. VSS, AFEBRILE. V-PACED ON MONITOR. URINE OUTPUT NOTED. TURNS PER PATIENTS REQUEST. DAUGHTER AT BEDSIDE. NO COMPLAINS PRESENTLY. WILL CONTINUE TO MONITOR PT.
--- NOTE | 2019-04-26 09:02 | NUR ---
Hospice/palliative care. Defer further nutrition reassessment
--- NOTE | 2019-04-26 10:28 | NUR ---
FOLLOWING FOR DC PLANNING. CLINICAL INFO REVIEWED. DISCUSSED WITH DR. ALVARADO AFTER HE MET WITH PT AND DTR S BEV AND EMMANUEL. PT DIRECTED HER OWN CARE AND IS AGREEABLE TO HOSPICE. DTR BEV STATES SHE WOULD LIKE [facility] TO [facility] AND PT AND BOTH DTRS AGREEABLE TO TRANSITION THERE TODAY IF ACCFEPTED AND BED AVAILABLE. INFORMED WOULD TRANSPORT BY AMBULANCE IF ACCEPTED AND PT AND DTRS AGREEABLE. OUTSIDE DNR COMPLETED AND REFERRAL FAXED TO INTAKE AT [facility] AND SPOKE WITH STAFF. PROVIDED BEV AND LEAH CONTACT #S FOR [facility] STAFF. UPDATED EXTRACTION MACHINE OPERATOR AND DR. RAMOS.
[2019-04-26 12:07] VITALS: BP 104/54
--- NOTE | 2019-04-26 16:32 | NUR ---
ASSESSMENTS AND INTERVENTIONS DOCCUMENTED. PATIENT STATUS CHANGED TO MED SURG PER DR. GREENFIELD. HOSPICE CONSULTED AND PATIENT ACCEPTED INTO CARE. MORPHINE GIVEN PRN FOR PAIN. EMS ARRIVING TO UNIT AROUND 1530. PATIENT TRANSPORTED TO [facility]. FAMILY COMFORTED.
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
--- NOTE | 2019-04-28 15:18 | NUR ---
CALL TO CRAIG FROM [place] [employer] TO INFORM PT DISCHARGED TO [facility] 04/26/19.
--- NOTE | 2019-05-19 14:29 | O ---
[facility] [place] [address] [place] [address] OPERATIVE REPORT Name: TRACEY HARO Room #: 240-P [facility] IN M.R.#: [id number] Admission: 03/29/19 Attend Phys: Baldo Hendrix Discharge: 04/26/19 Date of : 37 Report #: [id number] THIS REPORT FOR: //name// CC: Baldo Hendrix Sven Arce DATE OF SERVICE: 04/02/2019 PROCEDURES PERFORMED: 1. Placement of left femoral central venous line. 2. Placement of left radial arterial line. PRE-PROCEDURE DIAGNOSES: 1. Septic shock. 2. Multisystem organ failure. POST-PROCEDURE DIAGNOSES: 1. Septic shock. 2. Multisystem organ failure. SURGEON: Dr. Samuel. HEALTH EDUCATION AIDE: None. ANESTHETIC: Lidocaine. ESTIMATED BLOOD LOSS: Less than 5 mL. URINE OUTPUT: Not measured. COMPLICATIONS: None. FINDINGS: Normal anatomy. DESCRIPTION OF PROCEDURE: After informed consent was obtained, the patient was in the supine position in her ICU bed. She was critically ill. Her left groin was prepped and draped in the usual sterile fashion. A timeout was performed. Ultrasound was used to access the femoral vein with a Cook needle. A guidewire was passed. Guidewire passed easily. Dilator was passed over the wire. Dilator was removed. Guidewire was left in place. Pre-flushed triple lumen central venous catheter was inserted into the femoral vein over the guidewire. The guidewire was removed. The central line was left in place. The patient was hemostatic. The central line was functioning correctly. It was secured in place using suture. The appropriate dressing was placed. Next, the left wrist was prepped and draped in the usual sterile fashion. An [facility] [address] [place] [address] OPERATIVE REPORT Name: TRACEY HARO Room #: 240-P [facility] IN M.R.#: [id number] Admission: 03/29/19 Attend Phys: Baldo Hendrix Discharge: 04/26/19 Date of : 37 Report #: [id number] Angiocath needle was used to access the left radial artery. The guidewire was passed easily. The catheter was passed over the guidewire. Pulsatile blood was expelling from the catheter upon removal of the guidewire. The catheter was sutured into place and hooked up to the transducer and there is a good waveform on the monitor. Appropriate dressing was placed. The patient tolerated the procedure well. There were no adverse events throughout the course of procedure. <ELECTRONICALLY SIGNED> By: Sanchez Samuel MD 05/19/19 1429 [id number] [id number] Sanchez Samuel MD /nt
== END 2019-04-26 15:35 | disposition hospice, inpatient (51) | DRG 870 ==
LOC: ER 00:39 → EROBS 06:00 → ICU 06:00
PROVIDERS: Emergency Medicine; Hospitalist; Internal Medicine; Internal Medicine Gastroenterology; Internal Medicine Pulmonary Disease; Nurse Practitioner; Nurse Practitioner Adult Health; Nurse Practitioner Family; Nurse Practitioner Gerontology; Pediatrics; Specialist; ADMIT Hospitalist
PROC: 30233K1 Transfusion of Nonautologous Frozen Plasma into Peripheral Vein, Percutaneous Approach (ICD-10-PCS; 2019-03-29)
PROC: 5A09357 Assistance with Respiratory Ventilation, Less than 24 Consecutive Hours, Continuous Positive Airway Pressure (ICD-10-PCS; 2019-03-29)
PROC: 5A1955Z Respiratory Ventilation, Greater than 96 Consecutive Hours (ICD-10-PCS; principal; 2019-03-30)
PROC: 0F798DZ Dilation of Common Bile Duct with Intraluminal Device, Via Natural or Artificial Opening Endoscopic (ICD-10-PCS; principal; 2019-03-30)
PROC: 5A09357 Assistance with Respiratory Ventilation, Less than 24 Consecutive Hours, Continuous Positive Airway Pressure (ICD-10-PCS; 2019-03-30)
PROC: 0F798DZ Dilation of Common Bile Duct with Intraluminal Device, Via Natural or Artificial Opening Endoscopic (ICD-10-PCS; 2019-03-30)
PROC: 0BH17EZ Insertion of Endotracheal Airway into Trachea, Via Natural or Artificial Opening (ICD-10-PCS; 2019-03-30)
PROC: 5A1955Z Respiratory Ventilation, Greater than 96 Consecutive Hours (ICD-10-PCS; 2019-03-30)
PROC: 0FPB8DZ Removal of Intraluminal Device from Hepatobiliary Duct, Via Natural or Artificial Opening Endoscopic (ICD-10-PCS; 2019-03-30)
PROC: 02HV33Z Insertion of Infusion Device into Superior Vena Cava, Percutaneous Approach (ICD-10-PCS; 2019-04-02)
PROC: 03HY32Z Insertion of Monitoring Device into Upper Artery, Percutaneous Approach (ICD-10-PCS; 2019-04-02)
PROC: 5A09357 Assistance with Respiratory Ventilation, Less than 24 Consecutive Hours, Continuous Positive Airway Pressure (ICD-10-PCS; 2019-04-08)
PROC: 5A09357 Assistance with Respiratory Ventilation, Less than 24 Consecutive Hours, Continuous Positive Airway Pressure (ICD-10-PCS; 2019-04-09)
PROC: 5A09357 Assistance with Respiratory Ventilation, Less than 24 Consecutive Hours, Continuous Positive Airway Pressure (ICD-10-PCS; 2019-04-10)
PROC: 5A09357 Assistance with Respiratory Ventilation, Less than 24 Consecutive Hours, Continuous Positive Airway Pressure (ICD-10-PCS; 2019-04-11)
PROC: 5A09357 Assistance with Respiratory Ventilation, Less than 24 Consecutive Hours, Continuous Positive Airway Pressure (ICD-10-PCS; 2019-04-12)
PROC: 5A09357 Assistance with Respiratory Ventilation, Less than 24 Consecutive Hours, Continuous Positive Airway Pressure (ICD-10-PCS; 2019-04-13)
PROC: 5A09357 Assistance with Respiratory Ventilation, Less than 24 Consecutive Hours, Continuous Positive Airway Pressure (ICD-10-PCS; 2019-04-14)
PROC: 5A09357 Assistance with Respiratory Ventilation, Less than 24 Consecutive Hours, Continuous Positive Airway Pressure (ICD-10-PCS; 2019-04-15)
PROC: 5A09357 Assistance with Respiratory Ventilation, Less than 24 Consecutive Hours, Continuous Positive Airway Pressure (ICD-10-PCS; 2019-04-16)
PROC: 5A09357 Assistance with Respiratory Ventilation, Less than 24 Consecutive Hours, Continuous Positive Airway Pressure (ICD-10-PCS; 2019-04-17)
PROC: 5A09357 Assistance with Respiratory Ventilation, Less than 24 Consecutive Hours, Continuous Positive Airway Pressure (ICD-10-PCS; 2019-04-18)
PROC: 5A09357 Assistance with Respiratory Ventilation, Less than 24 Consecutive Hours, Continuous Positive Airway Pressure (ICD-10-PCS; 2019-04-19)
PROC: 0W9B3ZZ Drainage of Left Pleural Cavity, Percutaneous Approach (ICD-10-PCS; 2019-04-20)
PROC: 5A09357 Assistance with Respiratory Ventilation, Less than 24 Consecutive Hours, Continuous Positive Airway Pressure (ICD-10-PCS; 2019-04-20)
PROC: 5A09357 Assistance with Respiratory Ventilation, Less than 24 Consecutive Hours, Continuous Positive Airway Pressure (ICD-10-PCS; 2019-04-21)
PROC: 0W993ZZ Drainage of Right Pleural Cavity, Percutaneous Approach (ICD-10-PCS; 2019-04-22)
PROC: 5A09357 Assistance with Respiratory Ventilation, Less than 24 Consecutive Hours, Continuous Positive Airway Pressure (ICD-10-PCS; 2019-04-22)
PROC: 5A09357 Assistance with Respiratory Ventilation, Less than 24 Consecutive Hours, Continuous Positive Airway Pressure (ICD-10-PCS; 2019-04-23)
PROC: 5A09357 Assistance with Respiratory Ventilation, Less than 24 Consecutive Hours, Continuous Positive Airway Pressure (ICD-10-PCS; 2019-04-24)
DX: A41.50 Gram-negative sepsis, unspecified (principal); R65.21 Severe sepsis with septic shock; L89.153 Pressure ulcer of sacral region, stage 3; J96.01 Acute respiratory failure with hypoxia; E43 Unspecified severe protein-calorie malnutrition; I21.A1 Myocardial infarction type 2; J69.0 Pneumonitis due to inhalation of food and vomit; K80.01 Calculus of gallbladder with acute cholecystitis with obstruction; N17.9 Acute kidney failure, unspecified; K83.09 Other cholangitis; E87.1 Hypo-osmolality and hyponatremia; D68.59 Other primary thrombophilia; N39.0 Urinary tract infection, site not specified; K62.5 Hemorrhage of anus and rectum; D68.9 Coagulation defect, unspecified; J44.0 Chronic obstructive pulmonary disease with (acute) lower respiratory infection; A41.51 Sepsis due to Escherichia coli [E. coli]; E78.00 Pure hypercholesterolemia, unspecified; K21.9 Gastro-esophageal reflux disease without esophagitis; E03.9 Hypothyroidism, unspecified; M10.9 Gout, unspecified; K59.09 Other constipation; G47.33 Obstructive sleep apnea (adult) (pediatric); I25.10 Atherosclerotic heart disease of native coronary artery without angina pectoris; I48.91 Unspecified atrial fibrillation; I25.5 Ischemic cardiomyopathy; N18.9 Chronic kidney disease, unspecified; R13.10 Dysphagia, unspecified; I95.9 Hypotension, unspecified; M19.90 Unspecified osteoarthritis, unspecified site; M48.00 Spinal stenosis, site unspecified; K22.0 Achalasia of cardia; D64.9 Anemia, unspecified; E87.8 Other disorders of electrolyte and fluid balance, not elsewhere classified; E87.70 Fluid overload, unspecified; I12.9 Hypertensive chronic kidney disease with stage 1 through stage 4 chronic kidney disease, or unspecified chronic kidney disease; E87.6 Hypokalemia; K29.60 Other gastritis without bleeding; G89.29 Other chronic pain; M54.9 Dorsalgia, unspecified; M54.5 Low back pain; F39 Unspecified mood [affective] disorder; E78.5 Hyperlipidemia, unspecified; Z95.1 Presence of aortocoronary bypass graft; Z88.6 Allergy status to analgesic agent; Z88.1 Allergy status to other antibiotic agents; Z88.8 Allergy status to other drugs, medicaments and biological substances; Z95.0 Presence of cardiac pacemaker; Z82.49 Family history of ischemic heart disease and other diseases of the circulatory system; Z87.11 Personal history of peptic ulcer disease; Z87.891 Personal history of nicotine dependence
CPT/HCPCS: 10078; 10203; 27000; 62110; 62900; 85026; 85076